=== PATIENT | male | born 1960 | race Caucasian/White ===

== ENCOUNTER 2017-10-23 12:40 | Observation (INO) | payer OTHER ==
--- NOTE | 2017-10-23 13:28 | RAD ---
INDICATION: Chest pain COMPARISON: March 22, 2016 TECHNIQUE: An AP portable view obtained at 1305 hours is submitted. FINDINGS: Bones/Soft Tissues: There are no acute bony findings. Cardiomediastinal: The cardiomediastinal silhouette is normal. Lungs: There are no infiltrates. Pleura: There are no pleural effusions. Other: None IMPRESSION: NO ACTIVE DISEASE
[2017-10-23 13:37] LABS: ABS Basophils 0.1 10^3/ul (0-0.2); ABS Eosinophils 0.1 10^3/ul (0-0.6); ABS Lymphocytes 1.7 10^3/ul (1.0-4.8); ABS Monocytes 0.6 10^3/ul (0-0.8); ABS Neutrophils 3.6 10^3/ul (1.5-7.7); ABS Nucleated RBC 0 10^3/ul; Eosinophil % 1.1 % (0-6); Hematocrit 47 % (42-52); Hemoglobin 15.8 g/dl (14.0-18.0); Lymphocyte % 28.2 % (25-47); Mean Corpuscular HGB Conc 34 g/dl (31-36); Mean Corpuscular Hemoglobin 32 pg (27-31); Mean Corpuscular Volume 93 fL (80-94); Mean Platelet Volume 8 um3 (7.4-10.4); Nucleated Red Blood Cells % 0.1; Platelet Count 286 10^3/ul (150-450); Red Blood Count 5.01 10^6/ul (4.0-5.4); Red Cell Distribution Width 13 % (10.5-15); White Blood Count 5.9 10^3/ul (3.5-10.8)
[2017-10-23 13:47] LABS: EGFR Non-African American 54.8 (>60)
[2017-10-23] MEDS ORDERED: Acetaminophen TAB* 325 MG PO PRN (17:10)
[2017-10-23] MEDS ORDERED: Ondansetron INJ* 2 MG/ML VIAL IV PRN (17:10)
[2017-10-23] MEDS: Heparin VIAL(*) 5000 UNITS/ML VIAL (FIVE THOUSAND) SUBCUT SCH (21:14)
--- NOTE | 2017-10-23 21:48 | ED ---
Imani Lux Gabriel, scribed for Philippe Mcmanus MD on 10/23/17 at 1338 . HPI Chest Pain - HPI Summary HPI Summary: This patient is a 57 year old M presenting to [facility] accompanied by his with a chief complaint of intermittent CP that began 10 days ago but was worse last night. The patient rates the pain 3/10 in severity and describes it as a weight on his chest. Symptoms aggravated by exertion. Patient reports belching and dizziness. Patient denies diaphoresis and nausea. Hx of HLD but he doesnt take medication for it. - History of Current Complaint Chief Complaint: EDChestPainROMI Time Seen by Provider: 10/23/17 13:18 Hx Obtained From: Patient Onset/Duration: Started Days Ago - 10, Still Present Timing: Intermittent, Lasting Days Initial Severity: Moderate Current Severity: Mild Pain Intensity: 3 Pain Scale Used: 0-10 Numeric Chest Pain Location: Diffuse Chest Pain Radiates: No Aggravating Factor(s): Exertion Associated Signs and Symptoms: Positive: Negative - diaphoresis and nausea, Other: - belching and dizziness - Allergy/Home Medications Allergies/Adverse Reactions: Allergies Allergy/AdvReac Type Severity Reaction Status Date / Time No Known Allergies Allergy Verified 03/22/16 19:25 Home Medications: Home Medications Aspirin TAB* [Aspirin 325 MG TAB*] 650 mg PO Q6H PRN 10/23/17 [History Confirmed 10/23/17] PMH/Surg Hx/FS Hx/Imm Hx Endocrine/Hematology History: Denies: Hx Diabetes Cardiovascular History: Reports: Other Cardiovascular Problems/Disorders - CARDIAC CATHETERIZATION 1995 HLD Denies: Hx Hypertension Sensory History: Denies: Hx Eye Injury, Hx Eye Prosthesis, Hx Glaucoma - Surgical History Surgery Procedure, Year, and Place: APPY 1978 Infectious Disease History: No Infectious Disease History: Denies: History Other Infectious Disease, Traveled Outside the [place] in Last 30 Days - Family History Known Family History: Positive: Cardiac Disease - BLOCKED ARTERIES - BOTH PARENTS. F - [place] - 60s. M - NO PA., Hypertension, Other - CANCER Negative: Diabetes - Social History Alcohol Use: None Substance Use Type: Reports: None Smoking Status (MU): Never Smoked Tobacco Review of Systems Negative: Skin Diaphoresis Positive: Chest Pain Negative: Nausea Neurological: Other - dizziness All Other Systems Reviewed And Are Negative: Yes Physical Exam - Summary Physical Exam Summary: Appearance: The patient is well-nourished in no acute distress and in no acute pain. Skin: The skin is warm and dry and skin color reflects adequate perfusion. HEENT: The head is normocephalic and atraumatic. The pupils are equal and reactive. The conjunctivae are clear and without drainage. Nares are patent and without drainage. Mouth reveals moist mucous membranes and the throat is without erythema and exudate. The external ears are intact. The ear canals are patent and without drainage. The tympanic membranes are intact. Neck: the neck is supple with full range of motion and non-tender. There are no carotid bruits. There is no neck vein distension. Respiratory: Chest is non-tender. Lungs are clear to auscultation and breath sounds are symmetrical and equal. Cardiovascular: Heart is regular rate and rhythm. There is no murmur or rub auscultated. There is no peripheral edema and pulses are symmetrical and equal. Abdomen: The abdomen is soft and non-tender. There are normal bowel sounds heard in all four quadrants and there is no organomegaly palpated. Musculoskeletal: There is no back tenderness noted. Extremities are non-tender with full range of motion. There is good capillary refill. There is no peripheral edema or calf tenderness elicited. Neurological: Patient is alert and oriented to person, place and time. The patient has symmetrical motor strength in all four extremities. Cranial nerves are grossly intact. Deep tendon reflexes are symmetrical and equal in all four extremities. Psychiatric: The patient has an appropriate affect and does not exhibit any anxiety or depression. Triage Information Reviewed: Yes Vital Signs On Initial Exam: Initial Vitals Temp Pulse Resp BP Pulse Ox 98.1 F 65 16 155/82 99 10/23/17 12:54 10/23/17 12:54 10/23/17 12:54 10/23/17 12:54 10/23/17 12:54 Vital Signs Reviewed: Yes Diagnostics - Vital Signs Vital Signs Temp Pulse Resp BP Pulse Ox 10/23/17 12:54 98.1 F 65 16 155/82 99 - Laboratory Lab Results: Lab Results 10/23/17 10/23/17 10/23/17 Range/Units 13:15 13:15 13:15 WBC 5.9 (3.5-10.8) 10^3/ul RBC 5.01 (4.0-5.4) 10^6/ul Hgb 15.8 (14.0-18.0) g/dl Hct 47 (42-52) % MCV 93 (80-94) fL MCH 32 H (27-31) pg MCHC 34 (31-36) g/dl RDW 13 (10.5-15) % Plt Count 286 (150-450) 10^3/ul MPV 8 (7.4-10.4) um3 Neut % (Auto) 59.8 (38-83) % Lymph % (Auto) 28.2 (25-47) % [place] % (Auto) 9.9 H (0-7) % Eos % (Auto) 1.1 (0-6) % Baso % (Auto) 1.0 (0-2) % Absolute Neuts (auto) 3.6 (1.5-7.7) 10^3/ul Absolute Lymphs (auto) 1.7 (1.0-4.8) 10^3/ul Absolute Monos (auto) 0.6 (0-0.8) 10^3/ul Absolute Eos (auto) 0.1 (0-0.6) 10^3/ul Absolute Basos (auto) 0.1 (0-0.2) 10^3/ul Absolute Nucleated RBC 0 10^3/ul Nucleated RBC % 0.1 Sodium 135 (133-145) mmol/L Potassium 3.7 (3.5-5.0) mmol/L Chloride 101 (101-111) mmol/L Carbon Dioxide 29 (22-32) mmol/L Anion Gap 5 (2-11) mmol/L BUN 15 (6-24) mg/dL Creatinine 1.34 H (0.67-1.17) mg/dL Est GFR ( Amer) 70.4 (>60) Est GFR (Non-Af Amer) 54.8 (>60) BUN/Creatinine Ratio 11.2 (8-20) Glucose 91 (70-100) mg/dL Lactic Acid 0.9 (0.5-2.0) mmol/L Calcium 9.5 (8.6-10.3) mg/dL Total Bilirubin 0.50 (0.2-1.0) mg/dL AST 15 (13-39) U/L ALT 21 (7-52) U/L Alkaline Phosphatase 50 (34-104) U/L CK-MB (CK-2) 2.1 (0.6-6.3) ng/mL Troponin I 0.00 (<0.04) ng/mL Total Protein 7.2 (6.4-8.9) g/dL Albumin 4.0 (3.2-5.2) g/dL Globulin 3.2 (2-4) g/dL Albumin/Globulin Ratio 1.3 (1-3) 10/23/17 Range/Units 16:04 WBC (3.5-10.8) 10^3/ul RBC (4.0-5.4) 10^6/ul Hgb (14.0-18.0) g/dl Hct (42-52) % MCV (80-94) fL MCH (27-31) pg MCHC (31-36) g/dl RDW (10.5-15) % Plt Count (150-450) 10^3/ul MPV (7.4-10.4) um3 Neut % (Auto) (38-83) % Lymph % (Auto) (25-47) % [place] % (Auto) (0-7) % Eos % (Auto) (0-6) % Baso % (Auto) (0-2) % Absolute Neuts (auto) (1.5-7.7) 10^3/ul Absolute Lymphs (auto) (1.0-4.8) 10^3/ul Absolute Monos (auto) (0-0.8) 10^3/ul Absolute Eos (auto) (0-0.6) 10^3/ul Absolute Basos (auto) (0-0.2) 10^3/ul Absolute Nucleated RBC 10^3/ul Nucleated RBC % Sodium (133-145) mmol/L Potassium (3.5-5.0) mmol/L Chloride (101-111) mmol/L Carbon Dioxide (22-32) mmol/L Anion Gap (2-11) mmol/L BUN (6-24) mg/dL Creatinine (0.67-1.17) mg/dL Est GFR ( Amer) (>60) Est GFR (Non-Af Amer) (>60) BUN/Creatinine Ratio (8-20) Glucose (70-100) mg/dL Lactic Acid (0.5-2.0) mmol/L Calcium (8.6-10.3) mg/dL Total Bilirubin (0.2-1.0) mg/dL AST (13-39) U/L ALT (7-52) U/L Alkaline Phosphatase (34-104) U/L CK-MB (CK-2) (0.6-6.3) ng/mL Troponin I 0.00 (<0.04) ng/mL Total Protein (6.4-8.9) g/dL Albumin (3.2-5.2) g/dL Globulin (2-4) g/dL Albumin/Globulin Ratio (1-3) Result Diagrams: 10/23/17 13:15 10/23/17 13:15 Lab Statement: Any lab studies that have been ordered have been reviewed, and results considered in the medical decision making process. - Radiology CXR Radiology Interpretation Completed By: Radiologist - No active disease ED physician has reviewed this radiology report. - EKG 1241 Cardiac Rate: NL EKG Rhythm: Sinus Rhythm - 72 BPM EKG Comparison: No Significant Change - unchanged from 03/22/16 Chest Pain Course/Dx - Course Course Of Treatment: Mr. Randall has been having episode of exertional chest pressure that have been getting worse. He has a family history and although his initial ecg and labs were WNL, I have asked the hospitalist to evaluate him. - Diagnoses Provider Diagnoses: Chest pain - Provider Notifications Discussed Care Of Patient With: Johan Giordano Time Discussed With Above Provider: 16:39 Instructed by Provider To: Admit As Inpatient Discharge - Discharge Plan Condition: Fair Disposition: ADMITTED TO [facility] documentation as recorded by the Imani desir Gabriel accurately reflects the service I personally performed and the decisions made by me, Philippe Mcmanus MD.
--- NOTE | 2017-10-23 22:13 | HP ---
CC: Dr. Key * HISTORY AND PHYSICAL: DATE OF ADMISSION: 10/23/17 PRIMARY CARE PROVIDER: Dr. Key. ATTENDING PHYSICIAN WHILE IN THE HOSPITAL: Dr. Johan Giordano * (report dictated by Sanjiv Benoit NP) CHIEF COMPLAINT: Chest tightness. HISTORY OF PRESENT ILLNESS: Mr. Randall is a 57-year-old male patient. He has history of hyperlipidemia, question of history of DINESH, says he has never been formally diagnosed but he does state that he snores at night. He comes into the ED today stating that for the last couple of weeks he has had intermittent chest discomfort at times with exertion described as a pressure heaviness, it can last for seconds upwards to minute. He noticed today when he was walking to his mail box, he got particularly short of breath. He felt like he was having little bit of chest pressure. He says that it got better when he stopped. He was concerned because he was having these symptoms recurrently throughout the last couple of weeks. He says that he has not had any fevers or chills, no coughing. At times, when he does get this chest discomfort, he does state that it feels like he is short of breath. He says that it can happen with non-exertion and it can happen with exertion. He came into the emergency department today because it just was not getting any better. He says he took aspirin last night, he felt well. He also had an episode last night where he felt like he was going to faint, but was not in the setting of chest discomfort , at that point, he says that he felt lightheaded, but there was no chest pain and no shortness of breath. He came into the ED today because of the chest discomfort and his story, we were asked to evaluate for admission. PAST MEDICAL HISTORY: Significant for: 1. Hyperlipidemia. Again, he has been noncompliant with his statins due to his arthralgias. He recently was prescribed Pravachol, he is unsure of the dose. 2. Question of DINESH, . PAST SURGICAL HISTORY: He has had an appendectomy. MEDICATIONS: Home meds include: 1. Pravachol again 1 tablet daily. 2. He thinks aspirin 650 mg every 6 hours as needed. ALLERGIES TO MEDICATIONS: Include no known drug allergies. FAMILY HISTORY: Both his parents had cancer. His father did have several heart attacks and CAD. SOCIAL HISTORY: He does not smoke. He does not drink. Surrogate decision maker is his . REVIEW OF SYSTEMS: There has been no documented fever. He denies having any significant weight change. There is no double vision. He denies having any ear discharge. There is no rhinorrhea. No sore throat, no thyroid enlargement. He denies having any chest pain. There is no orthopnea, there is no nocturnal dyspnea. Denies having any fevers or cough or chills. There is chest pressure per my HPI, which he says at times is exertional. He denies any loss of consciousness. Review of 14 systems completed, all others negative. PHYSICAL EXAMINATION GENERAL: At this time, Mr. Randall is a 57-year-old male patient. He appears to be well-nourished, well-developed. He does not appear to be in any acute distress. He is awake and alert. VITAL SIGNS: Blood pressure 131/76, pulse 61, respirations 14, O2 sat 93%, and temperature 98.1. HEENT: Atraumatic and normocephalic. Eyes: EOMI are intact. Sclerae anicteric and not pale. NECK: Supple. Throat oral mucosa appears to be moist. No oropharyngeal erythema. LUNGS: Clear to auscultation. No wheezes, rales, or rhonchi. HEART: Sounds S1 and S2. Regular rate and rhythm. No murmurs, rubs, or gallops. ABDOMEN: Soft, it was flat and nontender. Bowel sounds present. EXTREMITIES: Pulses were 2+ throughout. Moving all 4 extremities with 5/5 strength. NEUROLOGIC: The patient is awake, alert, and oriented x3. Tongue midline. Sign Painter Helper were equal. There were no gross focal deficits. SKIN: Intact. DIAGNOSTIC STUDIES/LAB DATA: Revealed a WBC of 5.9, RBC of 5.01, hemoglobin of 15.8, hematocrit of 47, and platelet count of 286. Sodium was 135, potassium 3.7, chloride of 101, bicarb 28, BUN 15, creatinine 1.34, glucose 91, lactate 0.9, calcium 8.5. Total bili 0.5, AST 15, ALT 21, alk phos 50. CK-MB was 2.1. Troponin was 0, repeat troponin was 0. Albumin of 4. He had an EKG obtained today, which when I reviewed I see he does have flattened T waves in V4, V5, and V6. He has that in his previous EKGs. He does have some flattened T waves in leads I, II, aVL, which when I looked back to that his older EKGs, he has had that previously. No significant changes were noted. On today's EKG, he has a heart rate of 72. No ST elevation. There was a chest x-ray obtained today, which revealed no active cardiopulmonary disease. Old medical records were reviewed. ASSESSMENT AND PLAN: Mr. Randall is a 57-year-old patient coming into the ED today with complaints of chest pain, at times exertional. We were asked to evaluate for admission. He will be admitted under observation status for: 1. Chest pain. Again, etiology at this point, I am concerned that it could be cardiac related. I will get another troponin. I will put the patient on aspirin, continue with statin. We are checking a lipid panel and A1c in the morning. We will place him on telemetry. We will get an EKG in the morning. We will cycle his troponin. I am checking a D-dimer as well if that is elevated , I will pursue a CTA. At this point, I am concerned it could be cardiac and will do a stress test in the morning, will continue to follow. 2. Hyperlipidemia. I am getting a lipid panel in the morning. We will start him on Pravachol. 3. Questionable obstructive sleep apnea. Recommend following with primary. 4. DVT prophylaxis. Place on heparin subcu. 5. Code status. He is a full code. 6. Fluids, electrolytes, and nutrition. He can have a heart-healthy diet. N.p.o. after midnight. TIME SPENT: On this admission 60 minutes, greater than half that time was spent [id number] with the patient obtaining my history and physical, other half time spent going over the plan of care with the patient and implementing the plan of care. I did discuss the plan of care with my attending, Dr. Giordano; he is in agreement. SANJIV BENOIT, RAULITO [id number]/[facility] #: [id number] FAVIAN
[2017-10-24] MEDS: Heparin VIAL(*) 5000 UNITS/ML VIAL (FIVE THOUSAND) SUBCUT SCH ×2 (05:05→13:01)
[2017-10-24 06:25] LABS: ABS Basophils 0 10^3/ul (0-0.2); ABS Eosinophils 0.1 10^3/ul (0-0.6); ABS Lymphocytes 1.9 10^3/ul (1.0-4.8); ABS Monocytes 0.7 10^3/ul (0-0.8); ABS Nucleated RBC 0 10^3/ul; Eosinophil % 1.6 % (0-6); Hematocrit 45 % (42-52); Hemoglobin 15.3 g/dl (14.0-18.0); Lymphocyte % 28.6 % (25-47); Mean Corpuscular HGB Conc 34 g/dl (31-36); Mean Corpuscular Hemoglobin 32 pg (27-31); Mean Corpuscular Volume 93 fL (80-94); Mean Platelet Volume 8 um3 (7.4-10.4); Nucleated Red Blood Cells % 0.2; Platelet Count 270 10^3/ul (150-450); Red Blood Count 4.83 10^6/ul (4.0-5.4); Red Cell Distribution Width 14 % (10.5-15); White Blood Count 6.8 10^3/ul (3.5-10.8)
[2017-10-24 06:58] LABS: EGFR Non-African American 51.6 (>60)
[2017-10-24] MEDS ORDERED: Aspirin Low Dose CHEW TAB* 81 MG PO SCH (09:00)
--- NOTE | 2017-10-24 12:58 | RAD ---
Edited for charges. Indication: Chest pain. Myocardial perfusion scan was performed utilizing 1 day protocol. 10.6 mCi technetium 99 and tetrofosmin was injected for the rest portion of the study. Treadmill stress study was performed and the maximum heart rate achieved was 100% of the maximum predicted value. 25.6 mCi of technetium 99m tetrofosmin was injected for the stress portion of the study. There is homogeneous distribution of the radiotracer throughout the left ventricle. There is a small to moderate sized inferior wall photopenia on the stress images which appears to reverse on the rest images especially with attenuation correction. The ejection fraction at stress is 83%. Evaluation of wall motion demonstrates no focal wall motion abnormality. IMPRESSION: Reversible change in the inferior wall of [id number] size. Normal ejection fraction. ASSESSMENT: Intermediate risk Based on imaging criteria from ACC/AHA 2002 Guideline Update for the Management of Patients With Chronic Stable Angina Table 23. Noninvasive Risk Stratification. Reference. HIGH-RISK (GREATER THAN 3% ANNUAL MORTALITY RATE) - Severe resting left ventricular dysfunction (LVEF < 35%) - Severe exercise left ventricular dysfunction (exercise LVEF < 35%) - Stress-induced large perfusion defect (particularly if anterior) - Stress-induced multiple perfusion defects of moderate size - Large, fixed perfusion defect with LV dilation or increased lung uptake ( thallium-201) - Stress-induced moderate perfusion defect with LV dilation or increased lung uptake (thallium-201) INTERMEDIATE-RISK (1%-3% ANNUAL MORTALITY RATE) - Mild/moderate resting left ventricular dysfunction (LVEF = 35% to 49%) - Stress-induced moderate perfusion defect without LV dilation or increased lung intake (thallium-201) LOW-RISK (LESS THAN 1% ANNUAL MORTALITY RATE) - Normal or small myocardial perfusion defect at rest or with stress MTDD
[2017-10-24 15:59] VITALS: BP 131/54
[2017-10-24] MEDS ORDERED: Atorvastatin* 10 MG TAB PO SCH (17:00)
--- NOTE | 2017-10-24 21:37 | CONS ---
CC: Lucio Key MD * CARDIOLOGY CONSULTATION NOTE: DATE OF CONSULT: 10/24/17 INDICATION FOR CONSULTATION: Chest discomfort. HISTORY OF PRESENT ILLNESS: The patient is a 57-year-old gentleman with history of hypertension, obstructive sleep apnea, hyperlipidemia, who came to the emergency room because of intermittent chest discomfort. The patient states that every once in a while he will get this feeling in his chest. It is not a sharp pain. It is in the center of his chest. It does not radiate anywhere. It will last anywhere from 5 minutes to 2 hours. It is not associated with exertion and is not associated with meals. He said he had this discomfort early in the morning yesterday and after talking with some friends in the afternoon, decided to come to the emergency room. On arrival to the emergency room, he was symptom free. Patient's initial EKG showed normal sinus rhythm with nonspecific T-wave abnormalities. Patient was admitted to the hospital. He ruled out for myocardial infarction. His EKG this morning was exactly the same. Patient underwent an exercise nuclear stress test. He exercised for 7 minutes. He had no chest pain. No EKG changes. Patient's nuclear images were personally reviewed by myself. It demonstrated a small reversible defect in the inferior wall potentially consistent with ischemia. When compared to the attenuation corrected images the overall size of the ischemic defect is smaller , but not completely resolved. His raw images do show some degree of diaphragmatic attenuation. He has normal LV function. PAST MEDICAL HISTORY: Significant for hyperlipidemia, obstructive sleep apnea. PAST SURGICAL HISTORY: He has had an appendectomy in the past. OUTPATIENT MEDICATION: Pravachol, which he has not been taking. ALLERGIES: No known drug allergies. FAMILY HISTORY: Father did have a history of coronary artery disease and heart attacks. He does have a family history of cancer. PHYSICAL EXAM: Height is 5 feet 4 inches, weight 220 pounds. Temperature 97.7 , heart rate 65, blood pressure 131/54, respiratory rate is 18, oxygen saturation 99% on room air. Sclerae anicteric. Oropharynx is pink. No erythema. Carotids are 2+ without bruits. JVD is normal. Thyroid is normal. Cardiac Exam: S1, S2 without any murmurs, rubs, or gallops. Lungs are clear to auscultation bilaterally. There is no dullness to percussion. Abdomen is soft, nontender, nondistended with normoactive bowel sounds. Extremities show no edema. He has 2+ pulses throughout. The patient is awake, alert, and oriented. He moves all 4 extremities equally. DIAGNOSTIC STUDIES/LAB DATA: CBC within normal limits. Chemistries within normal limits. Troponin levels are negative x3. Total cholesterol 332, LDL cholesterol 267, HDL cholesterol 32, triglycerides 161. IMPRESSION: This is a 57-year-old gentleman who was admitted to the hospital with atypical chest pain. He underwent an exercise nuclear stress test. His exercise portion was unremarkable. His nuclear portion does show a potential ischemic area to his inferior wall. He has normal LV function. For now, my recommendation is to treat the patient medically for potential coronary artery disease. Patient will be started on aspirin 81 mg a day. He will be encouraged to take his Pravachol on a daily basis. I will start the patient on Norvasc for both his blood pressure and antianginal. Patient has had beta-blockers in the past and has not liked how he felt on beta - blockers. Patient does have significantly elevated cholesterol levels. I am not convinced that he is going to reach goal levels of cholesterol based only on statin medication. At some point, we may consider newer medications such as Repatha for control of his cholesterol. I will see the patient in followup in 2 to 3 weeks. Patient is to call my office if he has any further chest discomfort. I have encouraged the patient to start a mild exercise program and start a low cholesterol diet and have a goal weight loss of 20 pounds in the next 6 months. [id number]/[facility] #: [id number] FAVIAN
--- NOTE | 2017-10-25 17:14 | DS ---
CC: Dr. Crowley; Dr. Key DISCHARGE SUMMARY: DATE OF ADMISSION: 10/23/17 DATE OF DISCHARGE: 10/24/17 PRIMARY CARE PROVIDER: Dr. Key. DISCHARGE DIAGNOSES: Chest pain with intermediate probability cardiac stress test documented on 09/29 03/14, suspect angina related chest pain. SECONDARY DIAGNOSES: 1. History of dyslipidemia. 2. Obesity with BMI of 38. 3. History of gastroesophageal reflux disease, symptoms treated as needed. CONSULTATIONS DURING THE HOSPITAL STAY: Included Dr. Crowley from Cardiology. LABORATORY DATA AND STUDIES PERFORMED: Included: On 10/24/17, white blood cell count of 6.8, hemoglobin 15.3, hematocrit 45, and platelets of 270. D-dimer was below 200. Sodium was 137, potassium 4.2, chloride 104, carbon dioxide 26, BUN 15, creatinine 1.41. The patient 's fasting lipide profile showed triglycerides of 161, cholesterol total of 332, LDL of 267, and HDL of 32. Hemoglobin A1c was 5.7. Nuclear portion of patient's exercise stress test showed, impression: "Reversible change in the infe rior wall of small to moderate size. Normal ejection fraction." It was assessed as intermediate risk . HOSPITALIZATION COURSE: Familia Randall is a 57-year-old male who has history of dyslipidemia that villasenor d not been treated since the patient in the past had myalgias due to Lipitor. He also was treated wi th beta-blockers in the past, which he did not tolerate and presented to the hospital with nonexertio nal chest pain. For further details of the patient's presentation, please see history and physical d ictated at admission. Shortly, the patient did not have any recurrence of his chest pain during his hospital stay. He was noted to have marked dyslipidemia and he stated he was prescribed Pravachol by his primary care provider that he filled the prescription, but he has not started taking it yet. Ex ercise portion of his stress test was unremarkable, but his nuclear views showed reversible ischemia, a small area in the inferior wall. The patient was seen by Dr. Crowley who recommended modifications of his cardiac risk factors and recommended starting patient on Norvasc as well as continuation of as pirin and continuation of Pravachol that the patient has not started yet. MEDICATIONS AT DISCHARGE: Include: 1. Amlodipine 2.5 mg daily. 2. Aspirin 325 mg daily. 3. Pravachol 40 mg daily. The patient is recommended to follow up with his primary care provider Dr. Key in 4 to [address] Crowley in 1 month. The patient is recommended to perform nonstrenuous exercise, but moderate physical activity is accept ed. We had a long discussion about importance of diet and exercise, which patient is going to try to adhe re more from now on. The patient also was informed that his hemoglobin A1c is 5.7, which is mildly e levated and the importance of low cholesterol diet and to avoid complex carbohydrates. Physical exam at discharge is unchanged from admission. [id number]/[facility] #: [id number]
== END 2017-10-24 17:40 | disposition home or self-care (01) ==
LOC: ED 12:40 → MEDTELE 17:50
PROVIDERS: ADMIT Internal Medicine; ATTEND Internal Medicine
DX: R07.9 Chest pain, unspecified (principal); E78.5 Hyperlipidemia, unspecified; R94.31 Abnormal electrocardiogram [ECG] [EKG]; G47.33 Obstructive sleep apnea (adult) (pediatric); Z79.82 Long term (current) use of aspirin; I45.81 Long QT syndrome; Z82.49 Family history of ischemic heart disease and other diseases of the circulatory system; Z79.899 Other long term (current) drug therapy
CPT/HCPCS: 36415; 71045; 78452; 80048; 80053; 80061; 82553; 83036; 83605; 84484; 85025; 85379; 93005; 93017; 99284; A9270-GY; A9502; G0378

== ENCOUNTER 2018-04-10 16:30 | Inpatient (IN) | payer OTHER ==
[2018-04-10 17:45] LABS: ABS Basophils 0.1 10^3/ul (0-0.2); ABS Eosinophils 0 10^3/ul (0-0.6); ABS Lymphocytes 1.2 10^3/ul (1.0-4.8); ABS Monocytes 0.7 10^3/ul (0-0.8); ABS Neutrophils 9.3 10^3/ul (1.5-7.7); ABS Nucleated RBC 0 10^3/ul; Eosinophil % 0.4 % (0-6); Hematocrit 46 % (42-52); Hemoglobin 15.5 g/dl (14.0-18.0); Lymphocyte % 10.5 % (25-47); Mean Corpuscular HGB Conc 34 g/dl (31-36); Mean Corpuscular Hemoglobin 31 pg (27-31); Mean Corpuscular Volume 93 fL (80-94); Mean Platelet Volume 7.8 um3 (7.4-10.4); Nucleated Red Blood Cells % 0.1; Platelet Count 273 10^3/ul (150-450); Red Blood Count 4.99 10^6/ul (4.00-5.40); Red Cell Distribution Width 13 % (10.5-15); White Blood Count 11.4 10^3/ul (3.5-10.8)
--- NOTE | 2018-04-10 17:53 | RAD ---
INDICATION: Headache COMPARISON: None TECHNIQUE: Noncontrast axial source images were acquired from the skull base to the vertex. FINDINGS: Ventricles/sulci: The ventricles and cisterns are normal in size and configuration for age. Brain parenchyma: There is no focal parenchymal finding, evidence of intracranial mass, or intracranial mass effect. Intracranial hemorrhage:None. Extra-axial spaces: There are no abnormal extra axial fluid collections or evidence of extra-axial mass. Calvarium: There is no calvarial fracture or other calvarial abnormality. Scalp: There is no evidence of scalp or extracalvarial soft tissue abnormality. Paranasal sinuses/mastoid: The paranasal sinuses and mastoid air cells are clear. Other: None. IMPRESSION: NEGATIVE EXAMINATION
[2018-04-10] MEDS ORDERED: Diazepam TAB(*) 5 MG PO ONE (17:55)
[2018-04-10 18:04] LABS: EGFR Non-African American 62.6 (>60)
[2018-04-10 18:40] LABS: INR 0.96 (0.77-1.02)
--- NOTE | 2018-04-10 18:59 | RAD ---
INDICATION: Arrhythmia COMPARISON: None TECHNIQUE: AP seated and lateral views were obtained. FINDINGS: Bones/Soft Tissues: There are no acute bony findings. Cardiomediastinal: The cardiomediastinal silhouette is normal. Lungs: There are no infiltrates. Pleura: There are no pleural effusions. Other: None IMPRESSION: NO ACTIVE DISEASE.
--- NOTE | 2018-04-10 19:08 | RAD ---
INDICATION: Headaches. Dizziness. COMPARISON: CT brain April 10, 2018 TECHNIQUE: sagittal T1 FLAIR, axial diffusion, axial T1 FLAIR, axial T2, axial T2 FLAIR, and SWI images were acquired. FINDINGS: Craniocervical junction: The craniocervical junction appears normal. Ventricles/sulci: The ventricles and cisterns are normal in size and configuration for age. Brain parenchyma: There The diffusion weighted images show hyperintensity in the distribution of the right posterior inferior cerebral artery consistent with an acute infarct. There are no other focal parenchymal abnormalities. There is no evidence of intracranial mass or mass effect. Intracranial hemorrhage: There is no intracranial hemorrhage. Extra-axial spaces: There are no extra-axial fluid collections or masses. Orbits: There are no MR abnormalities of the orbital structures. Paranasal sinuses/mastoid: The paranasal sinuses are clear. The mastoid air cells are well aerated.. Vascular: No abnormalities are seen. Other: None IMPRESSION: ACUTE, NONHEMORRHAGIC RIGHT CEREBELLAR INFARCT. FINDINGS CALLED TO EMERGENCY DEPARTMENT AT 1855 HOURS.
[2018-04-10] MEDS ORDERED: Alteplase* 9 MG in PREMIX* 0 ML IV ONE (19:24)
[2018-04-10] MEDS ORDERED: Alteplase* 50 MG VIAL IV ONE (19:26)
[2018-04-10] MEDS ORDERED: Alteplase* 100 MG VIAL ONE (19:34)
--- NOTE | 2018-04-10 19:53 | ED ---
Dizziness - HPI Summary HPI Summary: Patient complains of sudden onset dizziness, mild YOUNGBLOOD, lightheadedness, nausea vomiting with movement, sweats, difficulty keeping balance around 3:20 PM today. Dizziness described as room spinning. Pt alert and oriented, states he has been unable to walk due to dizziness. Symptoms are worse with movement of head or change in body position, sx improve when patient is lying down, still with eyes closed.. Denies prior history of same. Denies vision changes, facial droop, speech changes, AMS, unilateral weakness, fever, cough, sore throat, CP, SOB,, abdominal pain, change in urine, change in BM. Medical history is HTN, HDL. Nml stress test 09/2017. Non smoker. No anticoag. - History Of Current Complaint Chief Complaint: EDDizziness Stated Complaint: DIZZY/WEAKNESS/VOMITING Time Seen by Provider: 04/10/18 16:38 Hx Obtained From: Patient, Family/Dental Amalgam Processor Last Known Well Date: 3:20 Onset/Duration: Still Present Timing: Constant Severity Initially: Moderate Severity Currently: Moderate Character: Room Spinning, Lightheaded, Weak, Dizzy Aggravating Factor(s): Position Change, Change In Head Position Alleviating Factor(s): Lying Down, Closing Eyes Associated Signs And Symptoms: Positive: Nausea, Vomiting, Inability to Walk - Risk Factors Cardiac Risk Factors: Hypertension CVA Risk Factor: Hypertension, Hyperlipidemia - Allergies/Home Medications Allergies/Adverse Reactions: Allergies Allergy/AdvReac Type Severity Reaction Status Date / Time atorvastatin Allergy Unknown Verified 04/11/18 07:00 Reaction Details PMH/Surg Hx/FS Hx/Imm Hx Endocrine/Hematology History: Denies: Hx Anticoagulant Therapy, Hx Diabetes Cardiovascular History: Reports: Hx Angina, Other Cardiovascular Problems/ Disorders - CARDIAC CATHETERIZATION 1995 HLD Denies: Hx Hypertension, Hx Pacemaker/ICD GI History: Reports: Hx Gastroesophageal Reflux Disease Sensory History: Reports: Hx Contacts or Glasses Denies: Hx Eye Injury, Hx Eye Prosthesis, Hx Glaucoma, Hx Hearing Aid Comment Only: Other Sensory Impairments - Reading glasses. Opthamlomology History: Reports: Hx Contacts or Glasses Denies: Hx Eye Injury, Hx Eye Prosthesis, Hx Glaucoma Comment Only: Other Sensory Impairments - Reading glasses. Psychiatric History: Denies: Hx Panic Disorder - Surgical History Surgery Procedure, Year, and Place: APPY 1978. heart cath Infectious Disease History: No Infectious Disease History: Denies: History Other Infectious Disease, Traveled Outside the [place] in Last 30 Days - Family History Known Family History: Positive: Cardiac Disease - BLOCKED ARTERIES - BOTH PARENTS. F - [place] - 60s. M - NO [place]., Hypertension, Other - CANCER Negative: Diabetes - Social History Alcohol Use: None Substance Use Type: Reports: None Smoking Status (MU): Never Smoked Tobacco Review of Systems Constitutional: Negative Eyes: Negative Cardiovascular: Negative Respiratory: Negative Positive: Vomiting, Nausea Genitourinary: Negative Musculoskeletal: Negative Skin: Negative Neurological: Other - dizziness Positive: Headache Psychological: Normal All Other Systems Reviewed And Are Negative: Yes Physical Exam - Summary Physical Exam Summary: Neuro exam normal. Increase in symptoms with change in body position or head movement. Triage Information Reviewed: Yes Vital Signs On Initial Exam: Initial Vitals Temp Pulse Resp BP Pulse Ox 97.9 F 81 16 154/55 95 04/10/18 16:31 04/10/18 16:31 04/10/18 16:31 04/10/18 16:31 04/10/18 16:31 Vital Signs Reviewed: Yes Appearance: Positive: Well-Appearing Skin: Positive: Warm Head/Face: Positive: Normal Head/Face Inspection Eyes: Positive: Normal Neck: Positive: Supple Respiratory/Lung Sounds: Positive: Clear to Auscultation Cardiovascular: Positive: Normal Abdomen Description: Positive: Nontender Musculoskeletal: Positive: Normal Neurological: Positive: Normal Psychiatric: Positive: Normal AVPU Assessment: Alert - Killian Coma Scale Best Eye Response: 4 - Spontaneous Best Motor Response: 6 - Obeys Commands Best Verbal Response: 5 - Oriented Coma Scale Total: 15 Diagnostics - Vital Signs Vital Signs Temp Pulse Resp BP Pulse Ox 04/10/18 16:31 97.9 F 81 16 154/55 95 - Laboratory Lab Results: Lab Results 04/10/18 04/10/18 04/10/18 Range/Units 17:32 17:32 17:32 WBC 11.4 H (3.5-10.8) 10^3/ul RBC 4.99 (4.00-5.40) 10^6/ul Hgb 15.5 (14.0-18.0) g/dl Hct 46 (42-52) % MCV 93 (80-94) fL MCH 31 (27-31) pg MCHC 34 (31-36) g/dl RDW 13 (10.5-15) % Plt Count 273 (150-450) 10^3/ul MPV 7.8 (7.4-10.4) um3 Neut % (Auto) 81.8 (38-83) % Lymph % (Auto) 10.5 L (25-47) % Hettinger % (Auto) 6.2 (0-7) % Eos % (Auto) 0.4 (0-6) % Baso % (Auto) 1.1 (0-2) % Absolute Neuts (auto) 9.3 H (1.5-7.7) 10^3/ul Absolute Lymphs (auto) 1.2 (1.0-4.8) 10^3/ul Absolute Monos (auto) 0.7 (0-0.8) 10^3/ul Absolute Eos (auto) 0 (0-0.6) 10^3/ul Absolute Basos (auto) 0.1 (0-0.2) 10^3/ul Absolute Nucleated RBC 0 10^3/ul Nucleated RBC % 0.1 INR (Anticoag Therapy) 0.96 (0.77-1.02) Sodium 137 (135-145) mmol/L Potassium 4.2 (3.5-5.0) mmol/L Chloride 103 (101-111) mmol/L Carbon Dioxide 28 (22-32) mmol/L Anion Gap 6 (2-11) mmol/L BUN 13 (6-24) mg/dL Creatinine 1.19 H (0.67-1.17) mg/dL Est GFR ( Amer) 75.7 (>60) Est GFR (Non-Af Amer) 62.6 (>60) BUN/Creatinine Ratio 10.9 (8-20) Glucose 103 H (70-100) mg/dL Calcium 8.9 (8.6-10.3) mg/dL Total Bilirubin 0.40 (0.2-1.0) mg/dL AST 17 (13-39) U/L ALT 22 (7-52) U/L Alkaline Phosphatase 47 (34-104) U/L Troponin I 0.00 (<0.04) ng/mL C-Reactive Protein 1.74 (<8.01) mg/L B-Natriuretic Peptide ( - 100) pg/mL Total Protein 6.9 (6.4-8.9) g/dL Albumin 4.0 (3.2-5.2) g/dL Globulin 2.9 (2-4) g/dL Albumin/Globulin Ratio 1.4 (1-3) //18 Range/Units 17:32 WBC (3.5-10.8) 10^3/ul RBC (4.00-5.40) 10^6/ul Hgb (14.0-18.0) g/dl Hct (42-52) % MCV (80-94) fL MCH (27-31) pg MCHC (31-36) g/dl RDW (10.5-15) % Plt Count (150-450) 10^3/ul MPV (7.4-10.4) um3 Neut % (Auto) (38-83) % Lymph % (Auto) (25-47) % Hettinger % (Auto) (0-7) % Eos % (Auto) (0-6) % Baso % (Auto) (0-2) % Absolute Neuts (auto) (1.5-7.7) 10^3/ul Absolute Lymphs (auto) (1.0-4.8) 10^3/ul Absolute Monos (auto) (0-0.8) 10^3/ul Absolute Eos (auto) (0-0.6) 10^3/ul Absolute Basos (auto) (0-0.2) 10^3/ul Absolute Nucleated RBC 10^3/ul Nucleated RBC % INR (Anticoag Therapy) (0.77-1.02) Sodium (135-145) mmol/L Potassium (3.5-5.0) mmol/L Chloride (101-111) mmol/L Carbon Dioxide (22-32) mmol/L Anion Gap (2-11) mmol/L BUN (6-24) mg/dL Creatinine (0.67-1.17) mg/dL Est GFR ( Amer) (>60) Est GFR (Non-Af Amer) (>60) BUN/Creatinine Ratio (8-20) Glucose (70-100) mg/dL Calcium (8.6-10.3) mg/dL Total Bilirubin (0.2-1.0) mg/dL AST (13-39) U/L ALT (7-52) U/L Alkaline Phosphatase (34-104) U/L Troponin I (<0.04) ng/mL C-Reactive Protein (<8.01) mg/L B-Natriuretic Peptide 21 ( - 100) pg/mL Total Protein (6.4-8.9) g/dL Albumin (3.2-5.2) g/dL Globulin (2-4) g/dL Albumin/Globulin Ratio (1-3) Result Diagrams: 04/11/18 05:04 04/11/18 05:04 Lab Statement: Any lab studies that have been ordered have been reviewed, and results considered in the medical decision making process. - Radiology cxr Xray Interpretation: No Acute Changes Radiology Interpretation Completed By: Radiologist - CT brain CT Interpretation: No Acute Changes CT Interpretation Completed By: Radiologist CTA head and neck CT Interpretation: No Acute Changes - CTA head impression stenosis are identified within into and and 3 segments of the bilateral middle cerebral arteries. Atherosclerotic changes are identified of the cavernous left internal carotid artery with less than 50% stenosis. Basilar artery: No significant stenosis. No occlusion. No aneurysm. Right vertebral artery: No occlusion or significant stenosis. Left vertebral artery: No occlusion or significant stenosis. Right posterior cerebral artery: No occlusion or significant stenosis, no aneurysm. Left posterior cerebral artery: No occlusion or significant stenosis. No aneurysm. CTA neck impression: Atherosclerotic changes are visualized of the proximal right internal carotid artery with approximately 55% stenosis. Atherosclerosis of the proximal left internal carotid artery with approximately 40% stenosis CT Interpretation Completed By: Radiologist - EKG 1 Cardiac Rate: Other Rate EKG Rhythm: Sinus Rhythm ST Segment: Non-Specific Ectopy: None EKG Interpretation: ventricular trigeminy, change from EKG in 10/24/2017 - Additional Comments Diagnostic Additional Comments: MRI brain without contrast positive for right cerebellar infarct. National Institutes Of Health - NIH Scale Level of Consciousness: Alert/Keenly Responsive Ask Patient the Month and His/Her Age: Both Correct Ask Pt to Open/Close Eyes and Crop Research Scientist/Release Non-Paretic Hand: Both Correctly Best Gaze (Only Horizontal Eye Movement): Normal Visual Field Testing: No Visual Loss Facial Paresis-Pt to Smile & Close Eyes or Grimace Symmetry: Normal/Symmetrical Motor Function - Right Arm: No Drift-Holds 10 Seconds Motor Function - Left Arm: No Drift-Holds 10 Seconds Motor Function - Right Leg: No Drift-Holds 10 Seconds Motor Function - Left Leg: No Drift-Holds 10 Seconds Limb Ataxia-Must be out of Proportion to Weakness Present: Present in Two Limbs Sensory (Use Pinprick to Test Arms/Legs/Trunk/Face): Normal Best Language (Describe Picture, Name Items): No Aphasia Dysarthria (Read Several Words): Normal Extinction and Inattention: No Abnormality - 17:00 Total Score: 2 Dizzy Course/Dx - Course Course Of Treatment: Patient complains of sudden onset dizziness, mild YOUNGBLOOD, lightheadedness, nausea vomiting with movement, sweats, difficulty keeping balance around 3:20 PM today. Dizziness described as room spinning. Pt alert and oriented, states he has been unable to walk due to dizziness. Symptoms are worse with movement of head or change in body position, sx improve when patient is lying down, still with eyes closed.. Denies prior history of same. Denies vision changes, facial droop, speech changes, AMS, unilateral weakness, fever, cough, sore throat, CP, SOB,, abdominal pain, change in urine, change in BM. Medical history is HTN, HDL. Nml stress test 09/2017. Non smoker. No anticoag. Physical exam: Normal neuro. Vital signs within normal limits. CXR negative. CT head negative. Discussed patient with Dr. Mcmanus as there were EKG changes, who recommended discussing patient with Dr. Amaya absorption and adsorption engineer for neurology and possible MRI. Discussed patient with Dr. Amaya who stated that MRI was warranted if symptoms indicated. MRI ordered due to pt's age and med hx of HTN and HDL. MRI positive for right cerebral infarct. Discussed patient with Dr. Amaya again who recommended TPA administration. Discussed possible patient TPA contraindications with Dr Torres who agreed pt did not meet contraindication criteria. Patient denies recent surgery, stroke, neurosurgery, head trauma in past 3 months, anti-coag medication, history of brain tumor, hx of intercrainal hemorrhage, hx of anuerysm, hx of or current internal bleed, hx of prior TPA administration, current anticoag use. VS wnl. INR wnl. TPA administered. Neuro exam remains normal on re-eval. Patient states he feels better after TPA administration. CTA head and neck negative for large vessel occlusion, so no transfer indicated. Patient will be admitted to ICU. - Diagnoses Provider Diagnoses: Cerebellar infarct Discharge - Sign-Out/Discharge Documenting (check all that apply): Patient Departure - Discharge Plan Condition: Fair Disposition: ADMITTED TO [facility] - Billing Disposition and Condition Condition: FAIR Disposition: Admitted to [facility]
[2018-04-10] MEDS ORDERED: Iodixanol* (CONTRAST) 320 MG/ML 100 ML SDV IV ONE (20:20)
[2018-04-10] MEDS ORDERED: NS 0.9% 500 ML* 500 ML IV ONE (20:58)
--- NOTE | 2018-04-10 21:45 | RAD ---
EXAM: CT Angiography Head With Intravenous Contrast CLINICAL HISTORY: The patient age is 58 years old and is male; Signs and symptoms; Cognitive deficit; Psychomotor; Additional info: Really dizzy, slight headache, "super tired". Sudden onset, vomited. Denies chest pain, tightness, and pressure, denies arm radiation. end Facility exam id and description: CT cta hd/nk cta head/neck TECHNIQUE: Axial computed tomographic angiography images of the head with intravenous contrast using CT angiography protocol. 3D and MIP reconstructed images were created and reviewed. COMPARISON: BRAIN WO CT BRAIN WO 2018-04-10 17:25 FINDINGS: Right internal carotid artery: Mild atherosclerotic changes are identified of the cavernous right internal carotid artery, without hemodynamically significant stenosis. No aneurysm. 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 No occlusion or significant stenosis. No aneurysm. Right middle cerebral artery: Stenoses are identified within M2 and M3 segments of the bilateral middle cerebral arteries. No aneurysm. Right posterior cerebral artery: No occlusion or significant stenosis. No aneurysm. Right vertebral artery: No occlusion or significant stenosis. Left internal carotid artery: Atherosclerotic changes are identified of the cavernous left internal carotid artery, with less than 50% stenosis. No aneurysm. Left anterior cerebral artery: No occlusion or significant stenosis. No aneurysm. Left middle cerebral artery: See above. Left posterior cerebral artery: No occlusion or significant stenosis. No aneurysm. Left vertebral artery: No occlusion or significant stenosis. Basilar artery: No significant stenosis. No occlusion. No aneurysm. Dural sinuses/cerebral veins: The superior sagittal sinus, transverse sinuses, sigmoid sinuses, straight sinus, proximal internal jugular veins, internal cerebral veins are patent, without evidence of thrombosis. Bones/joints: Spondylosis is identified at multiple cervical and upper thoracic levels. Lymph nodes: Intraparotid and periparotid lymph nodes are identified, with fatty justin. These lymph nodes are nonspecific. IMPRESSION: 1. Stenoses are identified within M2 and M3 segments of the bilateral middle cerebral arteries. 2. Atherosclerotic changes are identified of the cavernous left internal carotid artery, with less than 50% stenosis. 3. Additional findings described above. EXAM: CT Angiography Neck With Intravenous Contrast EXAM DATE/TIME: 04/10/2018 8:14 PM CLINICAL HISTORY: The patient age is 58 years old and is male; Signs and symptoms; Cognitive deficit; Psychomotor; Additional info: Really dizzy, slight headache, "super tired". Sudden onset, vomited. Denies chest pain, tightness, and pressure, denies arm radiation. end Facility exam id and description: CT cta hd/nk cta head/neck TECHNIQUE: Axial computed tomographic angiography images of the neck with intravenous contrast using CT angiography protocol. 3D and MIP reconstructed images were created and reviewed. COMPARISON: No relevant prior studies available. FINDINGS: VASCULATURE: Right common carotid artery: Evaluation of the common carotid arteries is limited by suboptimal enhancement, without significant stenosis or occlusion. Right internal carotid artery: Atherosclerotic changes are visualized of the proximal right internal carotid artery, with approximately 55% stenosis. Right external carotid artery: No occlusion. Right vertebral artery: Venous enhancement significantly limit evaluation of the proximal right vertebral artery. There is no significant stenosis or occlusion of the remaining right vertebral artery. Left common carotid artery: See above. Left internal carotid artery: There is atherosclerosis of the proximal left internal carotid artery, with approximately 40% stenosis. No dissection or occlusion. Left external carotid artery: No occlusion. Left vertebral artery: There is increased tortuosity of the proximal left vertebral artery, without significant stenosis or occlusion. NECK: Bones/joints: There is straightening of the lordotic curvature of the cervical spine. There is straightening of the lordotic curvature of the cervical spine. Soft tissues: No mass. Lung apices: Patchy nonspecific groundglass density and atelectatic changes are identified within the lungs bilaterally. CAROTID STENOSIS REFERENCE USING NASCET CRITERIA: % ICA stenosis = (1 - narrowest ICA diameter/diameter of distal cervical ICA) x 100. Mild - <50% stenosis. Moderate - 50-69% stenosis. Severe - 70-94% stenosis. Near occlusion - 95-99% stenosis. Occluded - 100% stenosis. IMPRESSION: 1. Atherosclerotic changes are visualized of the proximal right internal carotid artery, with approximately 55% stenosis. 2. There is atherosclerosis of the proximal left internal carotid artery, with approximately 40% stenosis. 3. Additional findings described above. R0
[2018-04-10] MEDS ORDERED: Senna TAB PO PRN (23:03)
[2018-04-10] MEDS ORDERED: Docusate CAP* 100 MG PO PRN (23:03)
[2018-04-10] MEDS ORDERED: Al Hydrox/Mg Hydrox/Simet LIQ* 30 ML UDC PO PRN (23:03)
[2018-04-11] MEDS: NS 0.9% 1000 ML* 1,000 ML IV SCH ×3 (00:06→15:56)
[2018-04-11] MEDS ORDERED: Atorvastatin* 80 MG TAB PO SCH (00:10)
[2018-04-11] MEDS ORDERED: Atorvastatin* 80 MG TAB ONE (00:15)
[2018-04-11] MEDS: Acetaminophen TAB* 325 MG PO PRN ×3 (00:32→22:25)
[2018-04-11] MEDS: CMCS:Pravastatin (NF) 20 MG TAB PO SCH ×2 (02:19→16:12)
[2018-04-11] MEDS: Ondansetron INJ* 2 MG/ML VIAL IV PRN ×4 (02:30→22:44)
[2018-04-11 05:13] LABS: ABS Basophils 0 10^3/ul (0-0.2); ABS Eosinophils 0 10^3/ul (0-0.6); ABS Lymphocytes 1.1 10^3/ul (1.0-4.8); ABS Monocytes 0.6 10^3/ul (0-0.8); ABS Neutrophils 8.4 10^3/ul (1.5-7.7); ABS Nucleated RBC 0 10^3/ul; Eosinophil % 0.2 % (0-6); Hematocrit 45 % (42-52); Hemoglobin 15.3 g/dl (14.0-18.0); Lymphocyte % 10.6 % (25-47); Mean Corpuscular HGB Conc 34 g/dl (31-36); Mean Corpuscular Hemoglobin 32 pg (27-31); Mean Corpuscular Volume 93 fL (80-94); Mean Platelet Volume 7.7 um3 (7.4-10.4); Nucleated Red Blood Cells % 0.1; Platelet Count 258 10^3/ul (150-450); Red Blood Count 4.86 10^6/ul (4.00-5.40); Red Cell Distribution Width 14 % (10.5-15); White Blood Count 10.2 10^3/ul (3.5-10.8)
[2018-04-11 05:21] LABS: INR 1.16 (0.77-1.02)
[2018-04-11 05:30] LABS: EGFR Non-African American 69.2 (>60)
--- NOTE | 2018-04-11 08:07 | HP ---
CC: Lucio Key MD* HISTORY AND PHYSICAL: DATE OF ADMISSION: 04/10/18 TIME OF EVALUATION: 2300 PRIMARY CARE PHYSICIAN: Lucio Key MD CHIEF COMPLAINT: Dizziness, nausea, vomiting, and difficulty ambulating. HISTORY OF PRESENT ILLNESS: This is a 58-year-old male with a past medical history of hypertension and hyperlipidemia who presented to the emergency room with acute onset of dizziness. The patient states he works from home, he went to go eat lunch and he was talking to his friend on the phone around 3 p.m. where he got acutely dizzy, could not walk. He was trying to call his , but he could not get the right number at first. He finally was able to get in touch with his son who brought him into the emergency room. He was also having nausea and vomiting. His dizziness was so bad he was having a hard time seeing and could not ambulate. In the emergency room, the patient had several imaging studies and was found to have an acute nonhemorrhagic right cerebellar infarct. He was given tPA and has been since referred to the hospitalist service for further evaluation. The patient states as long as he does not move, he does not have any pain, but he does get headaches with movement of his head. No numbness or tingling. He has generalized weakness. No focal weakness. No vision changes. The dizziness is still there but somewhat improved. No further nausea or vomiting. He was falling at home when the symptoms occurred, but he did not lose consciousness or hit his head. He states he would get dizzy spells when he was 17 years of age but nothing to this extent. He denies any chest pain, shortness of breath, or palpitations; otherwise, review of systems is negative. In the emergency room, as mentioned, the patient was given tPA and referred to the hospitalist service for further evaluation. PAST MEDICAL HISTORY: 1. Hypertension. 2. Hyperlipidemia. 3. Morbid obesity. MEDICATIONS: 1. Pravastatin 40 mg daily. 2. Aspirin 325 mg. The patient states he is not consistently taking this, on average takes about 2 times a week. 3. Amlodipine 5 mg p.o. daily. ALLERGIES: No known drug allergies. FAMILY HISTORY: Father from prostate cancer in his 80s. Mother from lung cancer in her 80s. SOCIAL HISTORY: The patient lives at home with his . 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 No smoking, alcohol, or illicit drug use. His healthcare proxy is his , Yesi. CODE STATUS: Full code. REVIEW OF SYSTEMS: A 14-point review of systems as mentioned in the HPI, otherwise negative. PHYSICAL EXAM: GENERAL: No acute distress, resting comfortably, noted with his eyes closed persistently. VITAL SIGNS: Temp 97.9, pulse rate 76, respiratory rate 18, oxygen saturation 94% on room air, blood pressure 122/74. HEENT: Head: Normocephalic. Pupils are equal and reactive, anicteric. Oropharynx: Mucous membranes are moist. NECK: Supple. No lymphadenopathy. RESPIRATORY: Clear to auscultation. No wheezing, rhonchi, or rales. CARDIAC: Regular rate and rhythm with ectopic beats. ABDOMEN: Soft, nontender, nondistended EXTREMITIES: No clubbing, cyanosis, or edema. +1 DPs. NEUROLOGIC: Alert and oriented x3. Cranial nerves II through XII intact. Negative pronator drift. Upper and lower muscle strength equal and symmetric. Did not attempt to ambulate him as he just received tPA. LABORATORY DATA: White count 11.4, hemoglobin 15.5, hematocrit 46, platelets 273. INR is 0.96. Sodium 137, potassium 4.2, chloride 103, bicarb 28, BUN 13, creatinine 1.19, glucose 103. Troponin is 0 x2. CRP 1.74. BNP is 21. RADIOGRAPHIC DATA: Head CT shows negative exam. Chest x-ray: No active disease. Brain MRI: Acute nonhemorrhagic right cerebellar infarct. Head CTA: Atherosclerotic changes are visualized of the proximal right internal carotid artery with approximately 55% stenosis. There is atherosclerosis of the proximal left internal carotid artery with approximately 40% stenosis. EKG shows normal sinus rhythm with PVCs. ASSESSMENT AND PLAN: This is a 58-year-old male with a past medical history of hypertension, hyperlipidemia who presents to the emergency room with acute onset of dizziness, nausea, vomiting, and ataxia, found to have a right cerebellar infarct, status post tPA. Right cerebellar infarct, status post tPA. Assessment: The patient has remained clinically stable. His nausea/vomiting has improved. He is going to get admitted to the ICU. Dr. Amaya, per ER staff, saw the patient in the emergency room. Plan: Admit him to the ICU with post tPA orders including bed rest. No further anticoagulation for the next 24 hours. We will order a CT 24 hours after his tPA was given, keep the head of the bed elevated to 20 degrees, monitor his urine output. We will order an echocardiogram, labs including a lipid panel for the morning. OT/PT and follow up with any further neurology recommendations. We will put him on atorvastatin in place of his pravastatin. Chronic medical problems: 1. Hypertension. We will allow for permissive hypertension in the setting of his acute infarct. 2. Hyperlipidemia. As mentioned, atorvastatin in place of pravastatin. 3. FEN: Bedside swallow evaluation, n.p.o. until then with gentle IV fluids. 4. DVT prophylaxis: The patient scores moderate risk. We will place him on SCDs in the setting of his tPA. 5. Code status: Full code. PATIENT TIME: Greater than 50 minutes was spent doing the history and physical , more than half the time was spent in direct patient contact and critical care time. [id number]/[facility] #: [id number] FAVIAN
--- NOTE | 2018-04-11 09:30 | CONS ---
CONSULTATION REPORT: DATE OF CONSULT: 04/10/2018. PATIENT OF: Dr. Crowley and Dr. Key. HISTORY OF PRESENT ILLNESS: This is a 58-year-old man I am asked to evaluate for stroke. He has a prior history of slightly elevated cholesterol and is also on an antihypertensive, although he says he does not have hypertension. He has been in otherwise good general health up until 3:30 this afternoon when he had acute onset of room spinning, difficulty walking, staggering, and nausea and vomiting. These symptoms were positional and he had no numbness or weakness. He had a very mild nondescript headache with this. His vision was blurry because things were spinning he notes. He presented to the ER where he was felt to have benign positional vertigo. I was called shortly after 6 about him and discussed the possibility asked if they were sure he was not having a stroke and they said they thought it was benign positional vertigo, but we will get an MRI scan. The MRI scan was obtained and called to the ER and he had an acute cerebellar infarct. I was then called at 7:15 and told what they had found out in the last note. That being documented, I recommended mixing TPA and I will call them to make sure that there is no contraindications. Then TPA was given within the 4 and a half hour window. Initially when they spoke to me on the phone at that point they thought that the last done well was 3:20 but it turns out to be 3:30. In any event there was no time to when I was called to had just to do telestroke or for me to come in before the TPA was given. He had a clear right cerebellar stroke that was acute on his MRI scan with difficulty walking and significant vertigo, so that was the basis of the decision. He has elevated cholesterol. He has apparently borderline hypertension. PAST MEDICAL HISTORY: He has had no surgeries. MEDICATIONS: His home medicines include: 1. Pravachol 40 mg daily. 2. Aspirin which he says he takes 325 daily, but he says he only takes it quite frequently. 3. Norvasc 2.5 mg daily. ALLERGIES: He has no known allergies. FAMILY HISTORY: There is no family history for stroke. He has a family history for elevated cholesterol. SOCIAL HISTORY: He does not smoke, drink, or use drugs. REVIEW OF SYSTEMS: Negative in all 14-spheres other than HPI. PHYSICAL EXAM: Temperature 97.9, pulse 91, respirations 24, blood pressure 155/ 76. He was alert and oriented with normal speech and comprehension. Full NIH stroke scale was performed. Cranial nerves: He had a right esotropia while he denied any double vision. His was not sure whether this was new. He had no clear nystagmus and he had slight past pointing on the right side compared to the left; but he had eye vision with this. His right [id number]-mq-[id number] was slightly floppier than his left. His speech was not slurred. I gave him an NIH stroke scale of 2, but he by recent report was unable to walk because of the symptoms. His strength is 5/5. He had no numbness to touch. No extensive double simultaneous stimulation. He had completely intact visual edwards. Cranial nerves II through XII intact. Chest: Clear. Cardiovascular: Regular, rate, and rhythm. Abdomen: Soft with positive bowel sounds. DIAGNOSTIC STUDIES/LAB DATA: I have reviewed his CT scan and his MRI. His MRI did show the acute right cerebellar infarct which looked like a partial infarct in the right posterior inferior cerebellar artery distribution. We obtained an emergency CTA as his TPA was infusing and those results are pending. Labs include white count of 11.4, hematocrit 46, platelets 273, INR 0.96, PTT 27.3. Chemistries showed normal electrolytes. BUN of 13, creatinine of 1.19. Normal liver function test. BNP 21, total protein 6.1. UA has not been obtained. Mr. Randall is status post a partial cerebellar infarct of this acute beginning at 3:30 today in the distribution of a right PICA artery. He is status post TPA and I discussed with him and his the risks and benefits and the fact that since that he was a difficult clinical case with his main symptom of vertigo and minimal other signs that an MRI scan was done to establish diagnosis of stroke. I discussed that the CTA will tell us if he has a large vessel occlusion that will make him a possible candidate for clot retrieval. I do not think with the degree of symptoms he has now that he would likely be currently a clot-retrieval candidate but if he had an LDL he may need to be in an institution where they would have the potential to retrieve his clots. If he were to deteriorate he will need to be hydrated. If he does not have an LDL the plan is for him to be admitted here with a CT scan in the next 24 hours barring complications. He will also need to not to follow his blood pressure parameters and I would have him hydrated both for his contrast and possibly for mild dehydration. He will need to be on statins and LDL to be done tomorrow. He will need to be on antiplatelet agents unless there is a cardioembolic reason for his stroke and I will begin the antiplatelet agent in 24 hours from the time of his TPA. Thank you for sharing his case. [id number]/[facility] #: [id number] FAVIAN
--- NOTE | 2018-04-11 10:05 | RAD ---
HISTORY: headache sp tpa COMPARISONS: MRI dated April 10, 2018 TECHNIQUE: Multiple contiguous axial CT scans were obtained of the head without intravenous contrast. FINDINGS: HEMORRHAGE/INFARCT: There is hypoattenuation of the right inferior cerebellum corresponding to the nonhemorrhagic infarct noted on the previous MRI. Elsewhere, there is no hemorrhage or acute infarct. MASSES/SHIFT: There is no mass or shift. EXTRA-AXIAL SPACES: There are no extra-axial fluid collections. SULCI AND VENTRICLES: The sulci and ventricles are normal in size and position for the patient's stated age. CEREBRUM: There are no focal parenchymal abnormalities. BRAINSTEM: There are no focal parenchymal abnormalities. CEREBELLUM: As noted above, there is hypoattenuation of the right inferior medial cerebellum. VESSELS: The vessels are grossly normal. PARANASAL SINUSES: The paranasal sinuses are clear. ORBITS: The orbits are unremarkable. BONES AND SOFT TISSUE: No bone or soft tissue abnormalities are noted. OTHER: None IMPRESSION: SUBACUTE NONHEMORRHAGIC INFARCT OF THE RIGHT INFERIOR CEREBELLUM CORRESPONDING TO THE INFARCT NOTED ON MRI.
[2018-04-11] MEDS ORDERED: Perflutren Lipid Microsphere* 3 ML VIAL ONE (11:04)
--- NOTE | 2018-04-11 11:16 | CONSULT ---
Consult Consult: Consultation Note Critical Care Requesting Physician: Dr Antwon London Reason for consult: CVA, s/p tpa Limitations in history/physical: none Date of consult: 04/11/2018 HPI: 58y M pmhx of HTN, HLD, GERD; presented to ER with dizziness, headache, lightheadedness, nausea+, vomiting+, difficulty keeping balance at 320pm 04/10. He had not documented visual, speech, focal weakness. No sob/cough/sputum/chest pain. Initial CT brain with no acute findings. He had an MRI brain showing an acute non-hemorrhagic infarct in right cerebellum. He was deemed a tPA candidate and given tpa at ~8pm. He is now in ICU, tpa completed. Overnight some nausea+, vomiting+. Moving all extremities, denying any focal weakness. ROS: negative except for pertinent positives mentioned above. PMHx: HTN, HLD, GERD PSHx: appendectomy 1979 Family History: CAD, HTN Social History: Alcohol-none, Smoking-none, Drug use-none Allergies: Allergies Allergy/AdvReac Type Severity Reaction Status Date / Time atorvastatin Allergy Unknown Verified 04/11/18 07:00 Reaction Details Home Medications: Amlodipine Besylate [Norvasc 2.5 mg tab] 2.5 mg PO DAILY #30 tab 10/24/17 [Rx Confirmed 04/10/18] Aspirin TAB* [Aspirin 325 MG TAB*] 325 mg PO DAILY #30 tab 10/24/17 [Rx Confirmed 04/10/18] Pravastatin Sodium [Pravachol] 40 mg PO DAILY #30 tablet 10/24/17 [Rx Confirmed 04/10/18] Tele: nsr, PACs Vitals: Vital Signs Temp 97.5 F 04/11/18 07:58 Pulse 74 04/11/18 06:00 Resp 20 04/11/18 06:00 BP 129/65 04/11/18 05:31 Pulse Ox 95 04/11/18 06:00 Intake & Output 04/10/18 04/11/18 04/11/18 18:59 06:59 18:59 Intake Total 915 Output Total 300 100 Balance 615 -100 Weight 99.79 kg 100.4 kg Intake: IV Fluids 730 IV FLUIDS 730 Oral 185 Output: Urine 300 100 O2/Vent: NC Infusions: NS 125 Current Medications: Acetaminophen (Tylenol Tab*) 650 mg PO Q4H PRN PRN Reason: FEVER/PAIN Last Admin: 04/11/18 00:32 Dose: 650 mg Al Hydrox/Mg Hydrox/Simethicone (Maalox Plus*) 30 ml PO Q6H PRN PRN Reason: INDIGESTION Docusate Sodium (Colace Cap*) 100 mg PO BID PRN PRN Reason: CONSTIPATION Sodium Chloride (Ns 0.9% 1000 Ml*) 1,000 mls @ 125 mls/hr IV PER RATE [facility] Last Admin: 04/11/18 07:54 Dose: 125 mls/hr Ondansetron HCl (Zofran Inj*) 4 mg IV Q4H PRN PRN Reason: NAUSEA/VOMITING Last Admin: 04/11/18 07:48 Dose: 4 mg Pravastatin Sodium (Pravachol (Nf)) 40 mg PO DAILY [facility] Last Admin: 04/11/18 02:19 Dose: 40 mg Senna (Senokot Tab*) 1 tab PO BID PRN PRN Reason: CONSTIPATION Physical Exam: General: awake, alert, no distress, no diaphoresis Head: normocephalic, atraumatic HEENT: no pallor, no icterus, moist mucous membranes Neck: soft, supple, no jvd, no stridor CVS: normal rate, regular, no murmur Resp: bilateral air entry, no rhales, no wheeze, no rhonchi, no acc muscle use Abdomen: soft, nontender, nondistended, bowel sounds present Ext: pulses+, warm, no edema Skin: intact, no breakdown, no dryness Neuro: awake, alert, orientedx3, moving all extremities 5/5; pupils reactive bilaterally; no dysarthria noted; finger-nose testing intact; left sided alternating hand+ for dysdiadokinesia Labs: Laboratory Results - last 24 hr 04/10/18 04/10/18 04/10/18 17:32 17:32 17:32 WBC 11.4 H RBC 4.99 Hgb 15.5 Hct 46 MCV 93 MCH 31 MCHC 34 RDW 13 Plt Count 273 MPV 7.8 Neut % (Auto) 81.8 Lymph % (Auto) 10.5 L Isabela % (Auto) 6.2 Eos % (Auto) 0.4 Baso % (Auto) 1.1 Absolute Neuts (auto) 9.3 H Absolute Lymphs (auto) 1.2 Absolute Monos (auto) 0.7 Absolute Eos (auto) 0 Absolute Basos (auto) 0.1 Absolute Nucleated RBC 0 Nucleated RBC % 0.1 INR (Anticoag Therapy) 0.96 APTT 27.3 Sodium 137 Potassium 4.2 Chloride 103 Carbon Dioxide 28 Anion Gap 6 BUN 13 Creatinine 1.19 H Est GFR ( Amer) 75.7 Est GFR (Non-Af Amer) 62.6 BUN/Creatinine Ratio 10.9 Glucose 103 H Calcium 8.9 Magnesium Total Bilirubin 0.40 AST 17 ALT 22 Alkaline Phosphatase 47 CK-MB (CK-2) Troponin I 0.00 C-Reactive Protein 1.74 B-Natriuretic Peptide Total Protein 6.9 Albumin 4.0 Globulin 2.9 Albumin/Globulin Ratio 1.4 Triglycerides Cholesterol LDL Cholesterol HDL Cholesterol 04/10/18 04/10/18 04/11/18 17:32 21:14 05:04 WBC RBC Hgb Hct MCV MCH MCHC RDW Plt Count MPV Neut % (Auto) Lymph % (Auto) Isabela % (Auto) Eos % (Auto) Baso % (Auto) Absolute Neuts (auto) Absolute Lymphs (auto) Absolute Monos (auto) Absolute Eos (auto) Absolute Basos (auto) Absolute Nucleated RBC Nucleated RBC % INR (Anticoag Therapy) 1.16 H APTT 31.1 Sodium Potassium Chloride Carbon Dioxide Anion Gap BUN Creatinine Est GFR ( Amer) Est GFR (Non-Af Amer) BUN/Creatinine Ratio Glucose Calcium Magnesium 1.9 Total Bilirubin AST ALT Alkaline Phosphatase CK-MB (CK-2) Troponin I 0.00 C-Reactive Protein B-Natriuretic Peptide 21 Total Protein Albumin Globulin Albumin/Globulin Ratio Triglycerides Cholesterol LDL Cholesterol HDL Cholesterol 04/11/18 04/11/18 05:04 05:04 WBC 10.2 RBC 4.86 Hgb 15.3 Hct 45 MCV 93 MCH 32 H MCHC 34 RDW 14 Plt Count 258 MPV 7.7 Neut % (Auto) 82.5 Lymph % (Auto) 10.6 L Isabela % (Auto) 6.3 Eos % (Auto) 0.2 Baso % (Auto) 0.4 Absolute Neuts (auto) 8.4 H Absolute Lymphs (auto) 1.1 Absolute Monos (auto) 0.6 Absolute Eos (auto) 0 Absolute Basos (auto) 0 Absolute Nucleated RBC 0 Nucleated RBC % 0.1 INR (Anticoag Therapy) APTT Sodium 136 Potassium 4.0 Chloride 105 Carbon Dioxide 27 Anion Gap 4 BUN 11 Creatinine 1.09 Est GFR ( Amer) 83.8 Est GFR (Non-Af Amer) 69.2 BUN/Creatinine Ratio 10.1 Glucose 127 H Calcium 8.4 L Magnesium Total Bilirubin 0.60 AST 16 ALT 19 Alkaline Phosphatase 42 CK-MB (CK-2) 1.5 Troponin I 0.00 C-Reactive Protein B-Natriuretic Peptide Total Protein 6.2 L Albumin 3.6 Globulin 2.6 Albumin/Globulin Ratio 1.4 Triglycerides 108 Cholesterol 296 LDL Cholesterol 235 HDL Cholesterol 39.1 Imaging: CT brain 04/10 - reviewed CT brain 04/11 - right cerebellar subacute nonhem infarct+ MRI brain 04/10 - right cerebellar acute nonhem infarct+ Assessment: 58y M pmhx of HTN, HLD, GERD; presented to ER with dizziness, headache, lightheadedness, nausea+, vomiting+, difficulty keeping balance at 320pm 04/10. He had not documented visual, speech, focal weakness. No sob/cough/ sputum/chest pain. Initial CT brain with no acute findings. He had an MRI brain showing an acute non-hemorrhagic infarct in right cerebellum. He was deemed a tPA candidate and given tpa at ~8pm. Acute Right Cerebellar Infarct; s/p tpa 04/10 HTN HLD Plan: Neuro- s/p tpa; neurochecks q1h till 8pm. Repat CT brain this morning due to n/ v. CT brain tonight. maintain permissive hypertension, <180. ASA tonight/statin now. asp prec. swallow eval. bleeding prec. CVS- maintain permissive hypertension. restart asa/statin. on NS 125cc/hr Resp- NC, no distress. wean down fio2. ID- afebrile. wbc 11. no abx indicated. GI- NPO. swallow eval today. zofran prn. Renal- Cr okay. K okay. no acidosis. IVF NS 125cc/hr. Heme- hg stable. plt okay. restart asa tonight. Endo- fingerstick as needed. check hba1c/tsh. Musculsk- pressure ulcer prophylaxis. Bedrest. pt/ot tomorrow Wounds- none Nutrition- swallow eval. DVT prophylaxis: SCDs GI prophylaxis: - Central Line:- Arterial Line:- Hitchcock Cathetor:- Disposition: ICU for neurochecks post tpa Code Status: full code Total Critical Care time is 30 minutes, excluding procedures/teaching Kev Marin MD Rail Maintenance Worker (Electronically Signed)
--- NOTE | 2018-04-11 12:54 | ECHO ---
Patient: DC DOMINGUEZ [facility] Rec#: [id number] : 1960 Date: 04/11/2018 Age: 58y Height: 163 cm / 64.2 in Weight: 100 kg / 220.4 lbs Sex: M BSA: 2.04 Room#: ICU 10 Admit Date#: 04/10/2018 Type: Inpatient Referring: Lita Kapoor Reading: Arlene Fitzpatrick MD Impregnation Operator: Brigid Negron,LUIS ALFREDOCS,RDMS CC: Lucio Key MD Transthoracic Echocardiogram Indication: CVA BP: 129/65 HR: 81 Rhythm: NSR with PVCs Findings History: HTN, HLD, angina Technical Comments: The study quality is fair. Left Ventricle: The left ventricular chamber size is normal. There is no left ventricular hypertrophy. Global left ventricular wall motion and contractility are within normal limits. The estimated ejection fraction is 55-60%. There is no consistent Doppler evidence of clinically significant diastolic dysfunction. Left Atrium: The left atrium is slightly dilated. Right Ventricle: The right ventricular chamber size and systolic function are within normal limits. Right Atrium: The right atrial cavity size is normal. Aortic Valve: The aortic valve is trileaflet. Systolic excursion of the aortic valve is normal. There is aortic annular calcification. There is no evidence of aortic regurgitation. There is no evidence of aortic stenosis. Mitral Valve: The mitral valve leaflets appear normal. There is no evidence of mitral regurgitation. There is no evidence of mitral stenosis. Tricuspid Valve: The tricuspid valve leaflets are normal. There is trace tricuspid regurgitation. Unable to estimate the right ventricular systolic pressure. Pulmonic Valve: The pulmonic valve appears normal. There is a trace pulmonic regurgitation. Pericardium: There is no significant pericardial effusion. Aorta: The aortic root appears normal. There is no dilatation of the aortic arch. Pulmonary Artery: The main pulmonary artery appears normal. Venous: The inferior vena cava appears normal in size. There is a greater than 50% respiratory change in the inferior vena cava dimension. Contrast: Definity was used to optimize study. A total of 2 ml was used Conclusions The left ventricular chamber size is normal. Global left ventricular wall motion and contractility are within normal limits. The estimated ejection fraction is 55-60%. The right ventricular chamber size and systolic function are within normal limits. No evidence of intracardiac shunting on color Doppler, no bubble study performed. All valves appear structurally normal with good function. There is trace tricuspid regurgitation. No prior study to compare. Measurements Name Value Normal Range RVIDd (AP) 2D 2.6 cm (0.9 - 2.6) RVDdMajor (2D) 2.5 cm (2.2 - 4.4) RAd ISD 4CH 5 cm (3.4 - 4.9) RA (A4C)W 3.4 cm (2.9 - 4.6) IVSd (2D) 1 cm (0.6 - 1) LVPWd (2D) 1 cm (0.6 - 1) LVIDd (2D) 4.3 cm (3.6 - 5.4) LVIDs (2D) 3 cm - LV FS (2D) 29 % (25 - 45) Aortic Annulus 2 cm (1.4 - 2.6) Ao root diameter (2D) 2.3 cm (2.1 - 3.5) Ascending Ao 2.4 cm (2.1 - 3.4) Aortic arch 3.1 cm (1.8 - 3.4) LA dimension (AP) 2D 4.1 cm (2.3 - 3.8) LAd ISD 4CH 6.7 cm (2.9 - 5.3) LA ISD 4CH W 4.1 cm (2.5 - 4.5) Name Value Normal Range LA ESV BP (A/L) index 28 ml/m2 - Name Value Normal Range MV E-wave Vmax 0.8 m/sec - MV deceleration time 187 msec - MV A-wave Vmax 0.6 m/sec - MV E:A ratio 1.3 ratio - P. vein S-wave Vmax 0.6 m/sec - P. vein D-wave Vmax 0.4 m/sec - P. vein S:D Vmax ratio 1.5 ratio - P. vein A-wave duration 124 msec - LV septal e' Vmax 0.07 m/sec - LV lateral e' Vmax 0.09 m/sec - LV E:e' septal ratio 11 ratio - LV E:e' lateral ratio 9 ratio - Name Value Normal Range AV Vmax 1.5 m/sec - AV VTI 28 cm - AV peak gradient 9 mmHg - AV mean gradient 4 mmHg - LVOT Vmax 1.1 m/sec - LVOT VTI 22 cm - LVOT peak gradient 5 mmHg - LVOT mean gradient 3 mmHg - ANGUS Vmax 0.5 m/sec - Name Value Normal Range RAP 8 mmHg - IVC diameter 2 cm - Name Value Normal Range PV Vmax 0.8 m/sec - PV peak gradient 2.6 mmHg -
[2018-04-11] MEDS ORDERED: PROCHLORPERAZINE INJ 5 MG/ML 2 ML VIAL IV PRN (14:46)
--- NOTE | 2018-04-11 20:49 | RAD ---
EXAM: CT Head Without Intravenous Contrast CLINICAL HISTORY: 58 years old, male; Condition or disease; Other: CVA; Additional info: S/P tpa TECHNIQUE: Axial computed tomography images of the head/brain without intravenous contrast. COMPARISON: BRAIN WO CT BRAIN WO 2018-04-10 17:25 FINDINGS: Brain: A low attenuation area is noted in the inferior aspect of the right cerebellar hemisphere consistent with nonhemorrhagic infarction. There are no extra-axial fluid collections. No midline shift. Ventricles: Unremarkable. No ventriculomegaly. Bones/joints: No acute fracture or aggressive osseous lesions Soft tissues: Unremarkable. Sinuses: Unremarkable as visualized. No acute sinusitis. Mastoid air cells: Unremarkable as visualized. No mastoid effusion. IMPRESSION: Low attenuation area in the inferior right cerebellum consistent with nonhemorrhagic infarction, similar in appearance to 04/10/18 head CTA, the most recent images available for comparison.
[2018-04-11] MEDS ORDERED: Atorvastatin* 80 MG TAB PO ONE (23:06)
[2018-04-12] MEDS: NS 0.9% 1000 ML* 1,000 ML IV SCH ×2 (01:13→09:32)
--- NOTE | 2018-04-12 03:53 | PN ---
NEUROLOGY FOLLOWUP: DATE OF SERVICE: 04/11/2018. PATIENT OF: Dr. Kapoor and Dr. Marin. HISTORY: This is a followup of 58-year-old man with right PICA stroke yesterday. He notes that he has more headache today, is nondescript, mostly in occipital, it was associated with significant nausea. He has some dizziness today, he has not been up and about. He is status tPA. MEDICATIONS: Include: 1. Colace. 2. Zofran. 3. Pravachol. 4. Compazine. 5. Senokot. PHYSICAL EXAMINATION: Temperature 98.7, pulse 81, respirations 20, blood pressure 129/65. When I saw him this morning, he is alert and oriented with normal speech and comprehension. His right esotropia appeared resolved. He had no nystagmus with slight past pointing on the right side compared to the left. Strength is 5/5 bilaterally. There is no sensory deficit to touch. Reflexes were 1+ and equal downgoing toes. Chest: Clear. Cardiovascular: Regular rate and rhythm without murmur. DIAGNOSTIC STUDIES/LAB DATA: I repeated a CT scan because of the new headache and nausea to make sure there were no complications from the tPA at that point; this was normal. His labs include white count 10.2, hematocrit 45, and platelet count of 258. Normal chemistries. His LDL was 235. He had a PTT of 31. INR of 1.16. 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 IMPRESSION AND PLAN: Mr. Randall has significantly elevated cholesterol and has evidence on his CTA of atherosclerotic disease, which is most likely cause of his cerebellar stroke. He tolerated the tPA well clinically to this point and he will receive a CT tonight and we will then begin dual antiplatelet therapy. I have discussed this with Dr. Marin. [id number]/[facility] #: [id number] [facility]annes
[2018-04-12] MEDS: Acetaminophen TAB* 325 MG PO PRN (05:13)
[2018-04-12] MEDS: Ondansetron INJ* 2 MG/ML VIAL IV PRN ×2 (06:05→17:07)
[2018-04-12] MEDS: CMCS:Pravastatin (NF) 20 MG TAB PO SCH (08:47)
--- NOTE | 2018-04-12 09:34 | PN ---
Progress Note - Progress Note Date of Service: 04/12/18 Note: Progress Note -- Critical Care 24 hour events: -s/p tpa; no new events; nausea+ but improving, no vomitting -dizzy at times still Tele: nsr Vitals: Vital Signs Temp 98.2 F 04/12/18 08:12 Pulse 54 04/12/18 08:00 Resp 10 04/12/18 08:00 BP 124/75 04/12/18 08:00 Pulse Ox 94 04/12/18 08:00 Intake & Output 04/11/18 04/12/18 04/12/18 18:59 06:59 18:59 Intake Total 1215 2030 Output Total 1055 1250 Balance 160 780 Weight 101.378 kg Intake: IV Fluids 1035 1430 NS 1035 1430 Oral 180 600 Output: Urine 1025 1250 Emesis 30 Other: # Voids 2 O2/Vent: NC Infusions: NS Current Medications: Acetaminophen (Tylenol Tab*) 650 mg PO Q4H PRN PRN Reason: FEVER/PAIN Last Admin: 04/12/18 05:13 Dose: 650 mg Al Hydrox/Mg Hydrox/Simethicone (Maalox Plus*) 30 ml PO Q6H PRN PRN Reason: INDIGESTION Aspirin (Aspirin 81 Mg Chew Tab*) 81 mg PO DAILY JENNY Atorvastatin Calcium (Lipitor*) 80 mg PO 1700 JENNY Docusate Sodium (Colace Cap*) 100 mg PO BID PRN PRN Reason: CONSTIPATION Ondansetron HCl (Zofran Inj*) 4 mg IV Q4H PRN PRN Reason: NAUSEA/VOMITING Last Admin: 04/12/18 06:05 Dose: 4 mg Prochlorperazine Edisylate (Compazine Inj*) 5 mg IV Q8HR PRN PRN Reason: NAUSEA/VOMITING Last Admin: 04/12/18 09:11 Dose: 5 mg Senna (Senokot Tab*) 1 tab PO BID PRN PRN Reason: CONSTIPATION Physical Exam: General: awake, alert, no distress, no diaphoresis Head: normocephalic, atraumatic HEENT: no pallor, no icterus, moist mucous membranes Neck: soft, supple, no jvd, no stridor CVS: normal rate, regular, no murmur Resp: bilateral air entry, no rhales, no wheeze, no rhonchi, no acc muscle use Abdomen: soft, nontender, nondistended, bowel sounds present Ext: pulses+, warm, no edema Skin: intact, no breakdown, no dryness Neuro: awake, alert, orientedx3, moving all extremities 5/5; pupils reactive bilaterally; no dysarthria noted; finger-nose testing intact; left sided alternating hand+ for dysdiadokinesia Labs: Laboratory Results - last 24 hr 04/12/18 04:56 TSH 4.51 Imaging: CT brain 04/10 - reviewed CT brain 04/11 - right cerebellar subacute nonhem infarct+ MRI brain 04/10 - right cerebellar acute nonhem infarct+ CT brain 04/11 - no change; right inferocerebellar infarct+ Assessment: 58y M pmhx of HTN, HLD, GERD; presented to ER with dizziness, headache, lightheadedness, nausea+, vomiting+, difficulty keeping balance at 320pm 04/10. He had not documented visual, speech, focal weakness. No sob/cough/ sputum/chest pain. Initial CT brain with no acute findings. He had an MRI brain showing an acute non-hemorrhagic infarct in right cerebellum. He was deemed a tPA candidate and given tpa at ~8pm. Acute Right Cerebellar Infarct; s/p tpa 04/10 HTN HLD Plan: Neuro- s/p tpa; repeat CT brain 04/11 stable. some nausea improving. change neurocehcks q4h. BP stable. Asa/statin. pt/ot CVS- BP stable. d/c IVF. asa/statin. no arrythmias noted. TTE without structural abn Resp- NC, no distress. wean down fio2. ID- afebrile. no abx indicated. GI- PO diet as tolerated. antiemetics prn. Renal- making urine. d/c ivf. Heme- hg stable. plt okay. cont asa. Endo- fingerstick as needed. tsh normal. Musculsk- pressure ulcer prophylaxis. pt/ot Wounds- none Nutrition- heart healthy diet DVT prophylaxis: SCDs GI prophylaxis: - Central Line:- Arterial Line:- Hitchcock Cathetor:- Disposition: transfer to [facility] Code Status: full code Kev Marin MD [employer] (Electronically Signed)
[2018-04-12] MEDS: Aspirin 81 mg CHEW TAB* 81 MG TAB.CHEW PO SCH (11:38)
[2018-04-12] MEDS ORDERED: Meclizine TAB* 12.5 MG PO SCH ×2 (14:00)
[2018-04-12] MEDS ORDERED: Atorvastatin* 80 MG TAB PO SCH (17:00)
[2018-04-12] MEDS: Meclizine TAB* 12.5 MG PO PRN (17:03)
[2018-04-12 17:51] LABS: EGFR Non-African American 65.7 (>60)
[2018-04-12] MEDS ORDERED: Pravastatin (NF) 20 MG TAB PO SCH (21:00)
[2018-04-13] MEDS: Aspirin 81 mg CHEW TAB* 81 MG TAB.CHEW PO SCH (09:29)
--- NOTE | 2018-04-13 12:10 | PN ---
NEUROLOGY FOLLOWUP: DATE OF SERVICE: 04/12/2018. HISTORY: This 58-year-old man who had a right PICA cerebellar infarct status post tPA. His repeat CT scan is reviewed and did show the stroke but no hemorrhage and he was started on 81 mg of aspirin yesterday. He remains dizzy, although slightly improved and not nauseous like he was yesterday. The dizziness does seem to be positional. He has no current headache and no weakness. His medicines have been unchanged, other than just added meclizine to his regimen, since some of his dizziness is positional. He has no other complaints. PHYSICAL EXAMINATION: Temperature 98.1, pulse 65, respirations 18, blood pressure 145/82. He is alert and oriented with normal speech and comprehension. Cranial nerves II through XII are intact. Face seems to be symmetric. Motor exam revealed 5/5 strength bilaterally. [id number] is now intact on the right arm as well as the left. Chest: Clear. Cardiovascular : Regular rate and rhythm. DIAGNOSTIC STUDIES/LAB DATA: His CT scan showed the stroke as mentioned above. His LDL was 235, and Dr. Marin has increased his Pravachol. I discussed with Familia and his family that the CT scan was unchanged just to show the stroke that he will be on aspirin, please increase the aspirin to 325 mg. He is on elevated statin, Lipitor 80 mg may be best for his elevated LDL. I discussed with him that the most likely etiology for his stroke is atherosclerotic disease secondary in his case to elevated cholesterol, being overweight, and possibly sleep apnea. He will need a sleep study when he goes home. He and his are pretty sure he has sleep apnea. I also began some Antivert for him for some of his dizziness his positional, but if it does not work he should just stop it. I think his symptoms are improving. Thank you for sharing his case. [id number]/[facility] #: [id number] FAVIAN
[2018-04-13] MEDS: Meclizine TAB* 12.5 MG PO PRN (16:37)
[2018-04-13 16:58] VITALS: BP 134/82
[2018-04-13] MEDS ORDERED: Atorvastatin* 80 MG TAB PO SCH (17:00)
[2018-04-13] MEDS ORDERED: Clopidogrel TAB* 75 MG PO ONE (17:12)
--- NOTE | 2018-04-13 17:26 | DCNOTE ---
Subjective Date of Service: 04/13/18 Interval History: Patient reports his dizziness has almost resolved and he is much better today. He feels steady on his feet. He is asking to go home. He and his asked many questions regarding diet and lifestyle optimization, they are interested in a referral to [facility]. he appears to be moticated as well as his states she would like to join him. Dr. Amaya and I saw the patient together - per Dr. Amaya the patients appears better today and symptoms have improved. Objective Active Medications: Acetaminophen (Tylenol Tab*) 650 mg PO Q4H PRN PRN Reason: FEVER/PAIN Last Admin: 04/12/18 05:13 Dose: 650 mg Al Hydrox/Mg Hydrox/Simethicone (Maalox Plus*) 30 ml PO Q6H PRN PRN Reason: INDIGESTION Aspirin (Ecotrin Ec Tab*) 325 mg PO DAILY JENNY Atorvastatin Calcium (Lipitor*) 80 mg PO 1700 JENNY Last Admin: 04/13/18 16:37 Dose: 80 mg Docusate Sodium (Colace Cap*) 100 mg PO BID PRN PRN Reason: CONSTIPATION Meclizine HCl (Antivert Tab*) 12.5 mg PO Q8H PRN PRN Reason: DIZZINESS Last Admin: 04/13/18 16:37 Dose: 12.5 mg Ondansetron HCl (Zofran Inj*) 4 mg IV Q4H PRN PRN Reason: NAUSEA/VOMITING Last Admin: 04/12/18 17:07 Dose: 4 mg Prochlorperazine Edisylate (Compazine Inj*) 5 mg IV Q8HR PRN PRN Reason: NAUSEA/VOMITING Last Admin: 04/12/18 09:11 Dose: 5 mg Senna (Senokot Tab*) 1 tab PO BID PRN PRN Reason: CONSTIPATION Vital Signs - 8 hr 04/13/18 04/13/18 11:13 16:05 Temperature 98.0 F 99.0 F Pulse Rate 57 37 Respiratory 16 16 Rate Blood Pressure 127/67 134/82 (mmHg) O2 Sat by Pulse 93 94 Oximetry Oxygen Devices in Use Now: None Appearance: obese 58 yo male sitting up on the side of the bed in NAD+O x3 Eyes: No Scleral Icterus, PERRLA Ears/Nose/Mouth/Throat: NL Teeth, Lips, Gums, Mucous Membranes Moist Neck: NL Appearance and Movements; NL JVP Respiratory: Symmetrical Chest Expansion and Respiratory Effort, Clear to Auscultation Cardiovascular: NL Sounds; No Murmurs; No JVD, RRR, No Edema Abdominal: NL Sounds; No Tenderness; No Distention Neurological: Alert and Oriented x 3, NL Sensation, NL Muscle Strength and Tone , - - gait is a little unsteady but ambulates well. FInger to nose test intact. no pronator drift. No facial droop. Strength is 5/5 throughout. Lines/Tubes/Other Access: Clean, Dry and Intact Peripheral IV Nutrition: Taking PO's Result Diagrams: 04/11/18 05:04 04/12/18 17:26 Additional Lab and Data: Lab Results 04/10/18 04/10/18 04/10/18 Range/Units 17:32 17:32 17:32 WBC 11.4 H (3.5-10.8) 10^3/ul RBC 4.99 (4.00-5.40) 10^6/ul Hgb 15.5 (14.0-18.0) g/dl Hct 46 (42-52) % MCV 93 (80-94) fL MCH 31 (27-31) pg MCHC 34 (31-36) g/dl RDW 13 (10.5-15) % Plt Count 273 (150-450) 10^3/ul MPV 7.8 (7.4-10.4) um3 Neut % (Auto) 81.8 (38-83) % Lymph % (Auto) 10.5 L (25-47) % [place] % (Auto) 6.2 (0-7) % Eos % (Auto) 0.4 (0-6) % Baso % (Auto) 1.1 (0-2) % Absolute Neuts (auto) 9.3 H (1.5-7.7) 10^3/ul Absolute Lymphs (auto) 1.2 (1.0-4.8) 10^3/ul Absolute Monos (auto) 0.7 (0-0.8) 10^3/ul Absolute Eos (auto) 0 (0-0.6) 10^3/ul Absolute Basos (auto) 0.1 (0-0.2) 10^3/ul Absolute Nucleated RBC 0 10^3/ul Nucleated RBC % 0.1 INR (Anticoag Therapy) 0.96 (0.77-1.02) Sodium 137 (135-145) mmol/L Potassium 4.2 (3.5-5.0) mmol/L Chloride 103 (101-111) mmol/L Carbon Dioxide 28 (22-32) mmol/L Anion Gap 6 (2-11) mmol/L BUN 13 (6-24) mg/dL Creatinine 1.19 H (0.67-1.17) mg/dL Est GFR ( Amer) 75.7 (>60) Est GFR (Non-Af Amer) 62.6 (>60) BUN/Creatinine Ratio 10.9 (8-20) Glucose 103 H (70-100) mg/dL Calcium 8.9 (8.6-10.3) mg/dL Total Bilirubin 0.40 (0.2-1.0) mg/dL AST 17 (13-39) U/L ALT 22 (7-52) U/L Alkaline Phosphatase 47 (34-104) U/L Troponin I 0.00 (<0.04) ng/mL C-Reactive Protein 1.74 (<8.01) mg/L B-Natriuretic Peptide ( - 100) pg/mL Total Protein 6.9 (6.4-8.9) g/dL Albumin 4.0 (3.2-5.2) g/dL Globulin 2.9 (2-4) g/dL Albumin/Globulin Ratio 1.4 (1-3) // Range/Units 17:32 WBC (3.5-10.8) 10^3/ul RBC (4.00-5.40) 10^6/ul Hgb (14.0-18.0) g/dl Hct (42-52) % MCV (80-94) fL MCH (27-31) pg MCHC (31-36) g/dl RDW (10.5-15) % Plt Count (150-450) 10^3/ul MPV (7.4-10.4) um3 Neut % (Auto) (38-83) % Lymph % (Auto) (25-47) % [place] % (Auto) (0-7) % Eos % (Auto) (0-6) % Baso % (Auto) (0-2) % Absolute Neuts (auto) (1.5-7.7) 10^3/ul Absolute Lymphs (auto) (1.0-4.8) 10^3/ul Absolute Monos (auto) (0-0.8) 10^3/ul Absolute Eos (auto) (0-0.6) 10^3/ul Absolute Basos (auto) (0-0.2) 10^3/ul Absolute Nucleated RBC 10^3/ul Nucleated RBC % INR (Anticoag Therapy) (0.77-1.02) Sodium (135-145) mmol/L Potassium (3.5-5.0) mmol/L Chloride (101-111) mmol/L Carbon Dioxide (22-32) mmol/L Anion Gap (2-11) mmol/L BUN (6-24) mg/dL Creatinine (0.67-1.17) mg/dL Est GFR ( Amer) (>60) Est GFR (Non-Af Amer) (>60) BUN/Creatinine Ratio (8-20) Glucose (70-100) mg/dL Calcium (8.6-10.3) mg/dL Total Bilirubin (0.2-1.0) mg/dL AST (13-39) U/L ALT (7-52) U/L Alkaline Phosphatase (34-104) U/L Troponin I (<0.04) ng/mL C-Reactive Protein (<8.01) mg/L B-Natriuretic Peptide 21 ( - 100) pg/mL Total Protein (6.4-8.9) g/dL Albumin (3.2-5.2) g/dL Globulin (2-4) g/dL Albumin/Globulin Ratio (1-3) Microbiology and Other Data: Microbiology 04/11/18 01:00 Nasal Screen MRSA (PCR) - Final Nasal Mrsa Not Detected Assess/Plan/Problems-Billing Assessment: - Patient Problems (1) CVA (cerebral vascular accident) Comment: ichemic CVA s/p tPa - right cerebellar infarct - stroke secondary to presumed atherosclerotic disease appreciate neurology consult - ok for DC to home. Recommends sleep study. Pt will try to go back on lipitor (this caused generalized atigue in the past but pt is willing to try again), continue plavix and ASA for 2 months then down to a single agent. He will f/u with Dr. Ortega after sleep study in approx 1 month. -CTA head/neck - artherosclerotic changes are visualized of the proximal right internal carotid artery with approx 55% stenosis. There is atherosclerosis of the proximal left internal carotid artery, 40%. - TTE - 55-60% - global wall motion and contractility are within normal limits. negative bubble study. - tele - no noted arrythmia - Referral to Dr. Salazar for sleep study - Lifestyle and diet education 30 minutes consultation - pt is motivated to loose weight[facility] (2) Dizziness Comment: resolved. suspect secondary to CVA. (3) HLD (hyperlipidemia) Comment: Lipitor (4) DVT prophylaxis Comment: HSQ Status and Disposition: plan for DC to home
--- NOTE | 2018-04-14 00:41 | PN ---
PROGRESS NOTES: DATE OF SERVICE: 04/13/18 PATIENT OF: Frida Palafox NP. HISTORY: Mr. Randall feels much better. He feels his nausea is mostly gone. He is not feeling dizzy. He is up and out of bed and walking. He has no headache. He is taking meclizine and thinks it has helped that he has gone many hours without it as well. MEDICATIONS: His medications include the, 1. Maalox Plus p.r.n. 2. Aspirin 325 daily. 3. Lipitor 80 mg daily. 4. Colace 100 mg b.i.d. 5. Antivert p.r.n. 6. Compazine 5 mg IV p.r.n. nausea and vomiting. PHYSICAL EXAMINATION: Temperature 98, pulse 57, respirations 16, blood pressure 127/ . On exam, he is alert and oriented with normal speech and comprehension. Cranial nerves II through XII are intact. No nystagmus. Motor exam revealed normal tone and strength. Normal nohzny-fz-hfho. He was able to walk relatively steadily, occasionally he touched the wall and turned but appeared stable. ASSESSMENT AND PLAN: He has made good recovery from his PICA stroke secondary to presumed atherosclerotic disease. He is going to try to stay on his Lipitor while he has had some muscle cramping in the past with it. He is going to go on aspirin plus Plavix for 2 months and then down to a single agent with the concern with his stroke was secondary to atherosclerotic disease. He is going to address his living habits and his dietary issues and doing a sleep study and I will see him back following that. Thank you for sharing his case. [id number]/[facility] #: [id number] FAVIAN
[2018-04-14] MEDS ORDERED: Aspirin EC TAB* 325 MG PO SCH (09:00)
--- NOTE | 2018-04-16 00:19 | DS ---
CC: Dr. Key * DISCHARGE SUMMARY: DATE OF ADMISSION: 04/10/18 DATE OF DISCHARGE: 04/13/18 PROVIDER: Kristofer Brownlee NP ATTENDING PHYSICIAN: Dr. Greenberg * (report dictated by Kristofer Brownlee NP). PRIMARY CARE PROVIDER: Dr. Key. CONSULTING NEUROLOGIST: Dr. Amaya. DISCHARGE DIAGNOSES: 1. Cerebellar infarct, status post tPA. 2. Atherosclerotic disease. 3. Obesity. 4. Type 2 diabetes. 5. Vertigo/dizziness felt to be secondary to stroke. DISCHARGE MEDICATIONS: 1. Aspirin 325 mg p.o. daily. 2. Norvasc 2.5 mg p.o. daily. 3. Meclizine 12.5 mg p.o. q.8 hours p.r.n. 4. Plavix 75 mg p.o. daily. 5. Lipitor 80 mg p.o. daily. HISTORY OF PRESENT ILLNESS AND HOSPITAL COURSE: Please see history and physical by Dr. Lita Kapoor for full admission details, but in summary, this is a 58-year-old male, who presented to the emergency department on 04/10/18 with complaint of dizziness, nausea, vomiting, and difficulty ambulating, found to have a right cerebellar stroke. He received tPA in the emergency department. He was admitted to the ICU with status post tPA orders. In the emergency department, his initial brain CT showed no acute pathology. He then underwent an MRI of the brain on 04/10/18, which did show an acute nonhemorrhagic right cerebellar infarct. He was seen in consultation by neurologist, Dr. Amaya, throughout the hospitalization. The patient had a head and neck CTA, which showed, impression: "1. Atherosclerotic changes are visualized in the proximal right internal carotid artery, with approximately 55% stenosis. 2. There was atherosclerosis of the proximal left internal carotid artery with approximately 40% stenosis." Dr. Amaya thinks most likely his stroke is secondary to atherosclerotic disease. He recommends a full-strength aspirin 325 mg daily and Plavix 75 mg p.o. daily as well as a higher dose of statin on which he will be discharged home on [address] Amaya recommends continuing dual-antiplatelet therapy for at least 2 months and then down to a single agent. The patient did undergo a repeat brain CT 24 hours after he was given tPA, which showed the subacute nonhemorrhagic infarct of the right inferior cerebellum corresponding to the infarct noted on the MRI, but otherwise stable. He did undergo a third brain CT on 04/11/18 showing "low attenuation area in the inferior right cerebellum consistent with a nonhemorrhagic infarct similar to the appearance of 04/10/18 head CTA" was noted to be stable as well. The patient continued to have some intermittent dizziness throughout hospitalization, which did improve with meclizine. It was also suspected that this improved when his stroke symptoms improved. Today, on discharge, the patient is stable. He reports no dizziness with ambulation. He feels steady on the feet. He is asking to go home. The patient was seen by myself as well as Dr. Amaya, who agrees the patient is stable for discharge to home. The patient's lipid profile is noted to have triglycerides of 108, cholesterol of 296, LDL of 235, HDL of 39. Due to the thought that most likely this stroke was secondary to atherosclerotic changes, it was discussed with the patient that healthy lifestyle changes were very important such as diet and exercise could reduce his risk of a second stroke. The patient is very interested in diet and lifestyle changes as well as his is very supportive. The patient will be referred to [facility] at discharge. The patient did undergo a transthoracic echocardiogram, which showed a negative bubble study and no evidence of intracardiac shunting on color Doppler. His estimated ejection fraction is 55% to 60% with global left ventricular wall motion and contractility within normal limits. All valves appeared structurally normal with good function. There is trace tricuspid regurgitation. The right ventricular chamber size and systolic function are within normal limits. DISCHARGE PLAN: 1. The patient is stable for discharge home. He is to follow up with his primary care provider within 3 to 5 days. 2. The patient has been referred to Dr. Salazar for a sleep study and it is possible he has undiagnosed sleep apnea. 3. Follow up with Dr. Amaya after the sleep study in approximately 1 month. 4. Referral to [facility]. TIME SPENT: Approximately 60 minutes was spent on this discharge. KRISTOFER BROWNLEE, RAULITO [id number]/[facility] #: [id number] FAVIAN
== END 2018-04-13 19:00 | disposition home or self-care (01) | DRG 45 ==
LOC: ED 16:30 → ICU 23:03 → MEDTELE 04-12 11:52
PROVIDERS: ADMIT Pediatrics; ATTEND Internal Medicine
DX: I63.233 Cerebral infarction due to unspecified occlusion or stenosis of bilateral carotid arteries (principal); E11.9 Type 2 diabetes mellitus without complications; R42 Dizziness and giddiness; I07.1 Rheumatic tricuspid insufficiency; I10 Essential (primary) hypertension; E66.01 Morbid (severe) obesity due to excess calories; E78.5 Hyperlipidemia, unspecified; K21.9 Gastro-esophageal reflux disease without esophagitis; R40.2362 Coma scale, best motor response, obeys commands, at arrival to emergency department; R40.2142 Coma scale, eyes open, spontaneous, at arrival to emergency department; R40.2252 Coma scale, best verbal response, oriented, at arrival to emergency department; R51 Headache; Z90.49 Acquired absence of other specified parts of digestive tract; Z68.38 Body mass index [BMI] 38.0-38.9, adult; Z79.82 Long term (current) use of aspirin; Z79.02 Long term (current) use of antithrombotics/antiplatelets; Z80.42 Family history of malignant neoplasm of prostate; Z80.1 Family history of malignant neoplasm of trachea, bronchus and lung; Z88.8 Allergy status to other drugs, medicaments and biological substances; Z82.49 Family history of ischemic heart disease and other diseases of the circulatory system
CPT/HCPCS: 36415; 70450; 70496; 70498; 70551; 71046; 80048; 80053; 80061; 82553; 83036; 83735; 83880; 84443; 84484; 85025; 85610; 85730; 86140; 87641; 93005; 93306; 99285; A9270-GY; C8929; J0780; J2405; J2997; Q9967

== ENCOUNTER 2018-04-16 10:32 | Emergency (ER) | payer OTHER ==
[2018-04-16 10:51] VITALS: BP 131/75
--- NOTE | 2018-04-16 11:25 | UC ---
Allergic Reaction HPI - HPI Summary HPI Summary: This is scribe Matias Attebnahed documenting for attending Lavon Ca MD. Pt is a 58 y/o M presents to ED s/p allergic reaction. Assoc. Sx: rash - hives, itchy. Denies: fever, chills, pain. He reports that he had a stroke ~1 week ago , Monday. He has been alleviating the Sx with plavix, aspirin and lipitor. Patient notes that he feels onset of Sx ~45 minutes s/p lipitor treatment. I, Dr. Ca, personally performed the services described in this documentation as scribed in my presence and it is both accurate and complete. - History of Current Complaint Chief Complaint: UCRash Stated Complaint: RASH Time Seen by Provider: 04/16/18 11:00 Hx Obtained From: Patient Onset/Duration: Gradual Onset - 45 mins, Still Present Pain Intensity: 0 Pain Scale Used: 0-10 Numeric Associated Signs And Symptoms: Positive: Rash - hives, Other: - POS: itching - Allergies/Home Medications Allergies/Adverse Reactions: Allergies Allergy/AdvReac Type Severity Reaction Status Date / Time atorvastatin Allergy Unknown Verified 04/11/18 07:00 Reaction Details Home Medications: Home Medications Ibuprofen 200 mg PO 04/16/18 [History] PMH/Surg Hx/FS Hx/Imm Hx Other Endocrine History: NEG: DM Other Cardiovascular History: NEG: CAD, HTN. Other History Of: Negative For: Anticoagulant Therapy - Surgical History Surgical History: Yes Surgery Procedure, Year, and Place: [id number]. heart cath - Family History Known Family History: Positive: Cardiac Disease - BLOCKED ARTERIES - BOTH PARENTS. F - [place] - 60s. M - NO [place]., Hypertension, Other - CANCER Negative: Diabetes - Social History Occupation: Employed Full-time Lives: With Family Alcohol Use: None Substance Use Type: None Smoking Status (MU): Never Smoked Tobacco - Immunization History Most Recent Influenza Vaccination: NEVER Most Recent Tetanus Shot: UNSURE Most Recent Pneumonia Vaccination: NONE Review of Systems Constitutional: Other - NEG: fever, chills, pain. Skin: Rash - hives, Other - POS: itchy. All Other Systems Reviewed And Are Negative: Yes Physical Exam - Summary Physical Exam Summary: VITAL SIGNS: Reviewed. GENERAL: Patient is a well-developed and nourished Male who is lying comfortable in the stretcher. Patient is not in any acute respiratory distress. HEAD AND FACE: Normocephalic EYES: PERRLA, EOMI x 2. EARS: Hearing grossly intact. MOUTH: Oropharynx within normal limits. NECK: Supple, trachea is midline, no adenopathy, no JVD, no carotid bruit. CHEST: Symmetric, no tenderness at palpation LUNGS: Clear to auscultation bilaterally. No wheezing or crackles. CVS: Regular rate and rhythm, S1 and S2 present, no murmurs or gallops appreciated. ABDOMEN: Soft, non-tender. Bowel sounds are normal. No abdominal abnormal pulsations. EXTREMITIES: Full ROM in all major joints, no edema, no cyanosis or clubbing. NEURO: Alert and oriented x 3. No acute neurological deficits. Speech is normal and follows Triage Information Reviewed: Yes Vital Signs: Initial Vital Signs Temp 98.4 F 04/16/18 10:46 Pulse 81 04/16/18 10:46 Resp 18 04/16/18 10:46 BP 131/75 04/16/18 10:46 Pulse Ox 99 04/16/18 10:46 Vital Signs Reviewed: Yes Allergic Reaction Course/Dx - Course Course Of Treatment: Patient is a 58-year-old male who presents to the urgent care with chief complaint of having an allergic reaction. The patient has diffuse hives, erythema and itching. He reports that the symptoms started after she started taking Plavix and Lipitor. However he reports that when he takes Plavix has no symptoms however he takes Lipitor 45 minutes later he develops increasing itching, hives and diffuse erythema. Patient denies any shortness of breath, swelling of the tongue or swelling of the lips. Denies any feeling that his throat is closing. Therefore the patient was given Benadryl, Decadron and Pepcid. I asked to call Dr. Amaya to review his medications. Patient will be discharged home with follow-up with PCP and Dr. Ash. She was given a prescription for Benadryl, prednisone, and Pepcid - Differential Dx/Diagnosis Provider Diagnoses: Allergic reaction. urticaria Discharge - Sign-Out/Discharge Documenting (check all that apply): Patient Departure All imaging exams completed and their final reports reviewed: Yes - Discharge Plan Condition: Stable Disposition: HOME Prescriptions: diPHENhydraMINE PO* [Benadryl PO 25 MG TAB*] 25 mg PO TID PRN #30 tab PRN Reason: Allergy Symptoms Famotidine TAB* [Pepcid 20 MG TAB*] 20 mg PO BID #30 tab predniSONE [Prednisone 20 MG TAB] 20 mg PO BID #12 tablet Patient Education Materials: Urticaria (ED) Referrals: Lucio Key MD [Primary Care Provider] - 3 Days Additional Instructions: Take medications as instructed and adhere to plan Take Acetaminophen or ibuprofen for pain or fever Increase your fluid intake Return to the or go to the emergency department if symptoms worsen Follow-up with primary care physician in next 2-3 days FOLLOW UP WITH YOUR PRIMARY CARE PROVIDER WITHIN ONE WEEK FOR HIGH BLOOD PRESSURE noted today - Billing Disposition and Condition Condition: STABLE Disposition: Home - Attestation Statements Document Initiated by Kena: Yes Documenting Scribe: Matias Lobato Provider For Whom Kena is Documenting (Include Credential): Lavon Ca MD. Scribe Attestation: Matias Lux scribed for Lavon Ca MD. on 04/18/18 at 0724. Scribe Documentation Reviewed: Yes Provider Attestation: The documentation as recorded by the Matias desir accurately reflects the service I personally performed and the decisions made by , Lavon Ca MD.
--- NOTE | 2018-04-17 07:40 | UC ---
- Progress Note Progress Note: no imaging studies Discharge - Sign-Out/Discharge Documenting (check all that apply): Post-Discharge Follow Up All imaging exams completed and their final reports reviewed: No Studies - Discharge Plan Condition: Stable Disposition: HOME Prescriptions: diPHENhydraMINE PO* [Benadryl PO 25 MG TAB*] 25 mg PO TID PRN #30 tab PRN Reason: Allergy Symptoms Famotidine TAB* [Pepcid 20 MG TAB*] 20 mg PO BID #30 tab predniSONE [Prednisone 20 MG TAB] 20 mg PO BID #12 tablet Patient Education Materials: Urticaria (ED) Referrals: Lucio Key MD [Primary Care Provider] - 3 Days Additional Instructions: Take medications as instructed and adhere to plan Take Acetaminophen or ibuprofen for pain or fever Increase your fluid intake Return to the UC or go to the emergency department if symptoms worsen Follow-up with primary care physician in next 2-3 days FOLLOW UP WITH YOUR PRIMARY CARE PROVIDER WITHIN ONE WEEK FOR HIGH BLOOD PRESSURE noted today - Billing Disposition and Condition Condition: STABLE Disposition: Home
== END 2018-04-16 11:45 | disposition home or self-care (01) ==
LOC: UCEAST 10:32
DX: L50.9 Urticaria, unspecified (principal); T46.6X5A Adverse effect of antihyperlipidemic and antiarteriosclerotic drugs, initial encounter; Z88.8 Allergy status to other drugs, medicaments and biological substances; Y92.9 Unspecified place or not applicable
CPT/HCPCS: 99212; G0463

== ENCOUNTER 2018-05-08 04:34 | Emergency (ER) | payer OTHER ==
[2018-05-08] MEDS ORDERED: ALPRAZolam TAB* 0.5 MG PO ONE (05:10)
--- OUTSIDE RECORDS SUMMARY | 2018-05-08 05:30 | XMS REPORT ---
:1960 External Reference #:[id number] Author Organization [employer] Address [address] [place] [address] [place] [address] Phone [phone] Care Team Providers Name Role Phone Lucio Key MD Primary Care Physician Unavailable Payers Type Date Identification Numbers Payment Provider Subscriber Commercial Policy Number: [id number] [facility] Brit A Prakash PayID: [id number] [address] [address] Problems Date Description Provider Status Onset: 05/02/2018 Carotid artery occlusion Angel Amaya MD Active Onset: 05/02/2018 Essential hypertension Angel Amaya MD Active Onset: 05/02/2018 Hyperlipidemia Angel Amaya MD Active Onset: 05/02/2018 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 Family History Date Family Member(s) Problem(s) Comments General Heart Disease Father Hypercholesterolemia : (age Father due to Prostate Cancer 80 Years) Mother Hypercholesterolemia Mother due to Lung Cancer () First Brother Cancer 40 years old Second Brother 56 Second Brother No Current Problems First Sister No Current Problems First Sister 62 Second Sister Throat Cancer Second Sister 43 Third Sister No Current Problems Third Sister 40 Third Sister Hypertension Social History Type Date Description Comments Marital Status 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 Allergies, Adverse Reactions, Alerts Date Description Reaction Status Severity Comments 05/02/2018 Lipitor active Rash Medications Medication Date Status Form Strength Qnty SIG Indications Ordering Provider Aspirin 81 Low 11/18/19 Active Chewtabs 81mg 1 by Yaya Rosado Dose 18 mouth Brand, MDimaDDima every day Pravastatin Active 20mg 1 tablet Unknown 00 po daily Amlodipine Active Tablets 2.5mg Take 1 Unknown Besylate 00 Tablet By Mouth Daily Plavix Active Tablets 75mg 1 by Unknown 00 mouth every day Vital Signs Date Vital Result Comment 05/02/2018 Height 64 inches 5'4" Weight 208.00 lb Heart Rate 76 /min BP Systolic Sitting 140 mmHg BP Diastolic Sitting 72 mmHg BMI (Body Mass Index) 35.7 kg/m2 11/17/2017 Height 64 inches 5'4" Weight 216.00 lb without shoes ( 223 lbs 3 weeks ago) Heart Rate 62 /min reg with ectopy BP Systolic Sitting 130 mmHg Rue lg cuff BP Diastolic Sitting 60 mmHg Rue lg cuff BP Systolic Standing 135 mmHg Rue lg cuff BP Diastolic Standing 64 mmHg Rue lg cuff BP Systolic Recheck 128 mmHg Rue lg cuff BP Diastolic Recheck 70 mmHg Rue lg cuff BMI (Body Mass Index) 37.1 kg/m2 Ejection Fraction 83% date 10/24/17 stress test Stress Ef Results Description No Information Procedures Date CPT Code Description Status 04/11/2018 26058 ECHO Transthorasic Realtime 2D W Doppler & Color Flow Completed Hosp 11/17/2017 10060 EKG Tracing & Interpretation Completed 10/24/2017 61544 Treadmill Interp/Report Only Completed 10/24/2017 50537 Stress Test Supervsn W/Out I/R Completed Encounters Type Date Location Provider CPT E/M Dx Office Visit 04/13/2018 [facility] [address] I63.531 7:00a G46.4 I65.23 E78.5 Office Visit 04/12/2018 7:00a [facility] Angel Amaya 16081 I63.531 G46.4 I65.23 E78.5 Office Visit 04/12/2018 2:10p [place] [address] I63.233 I10 E78.5 Office Visit 04/11/2018 7:00a [facility] Angel Amaya 31330 I63.531 G46.4 I63.233 E78.5 Office Visit 04/11/2018 2:10p [place] [address] I63.233 I10 E78.5 Office Visit 04/10/2018 7:00a [facility] Angel Amaya, 49214 I63.531 G46.4 I65.23 E78.5 Office Visit 04/10/2018 2:09p [facility], Lita Kapoor, 55603 I63.233 Hospitalists Office Visit 11/17/2017 2:45p [facility]on[facility], [address] R07.9 Laurence Rubio E78.5 Office Visit 10/24/2017 8:43a [facility], Lola Greenberg, 28187 R07.9 Hospitalists Ramiro E78.5 Office Visit 10/24/2017 2:21p [facility] [place], [address] R07.9 Laurence Rubio E78.5 I10 Office Visit 10/23/2017 8:43a [facility], Roger Vann, 16131 R07.9 Hospitalists N.P. E78.5 Plan of Care Future Appointment(s):03/01/2019 9:15 am - Angel Amaya MD at [facility] Bdjudp3805/02/2018 - Angel Amaya MDI63.531 Cereb infrc d/t unsp occls or stenos of right post cereb artComments:sp cerebellar stroke due to significant atherosclerotic disease and he is aggressively addressing risk factors. Defer to Dr Santos how best to treat his ldl but would shoot for now by bringing it down by 1/2 and ultimately below 70 if possible. I have recommended a sleep study since he snores and mayhave apnea and he is getting that and he should have a carotid doppler in a year to follow his stenosis. Please keep him on aspirin and plavix for now but please stop plavix in about 2 to 3 months. He will continue watching weight, optimizing his diet and exercising with Dr Santos's guidance.E78.5 Hyperlipidemia, [id number] Essential (primary) [id number] Occlusion and stenosis of bilateral carotid arteriesNew Xrays:VL Carotid BilateralFollow up:10 months- after carotid doppler
[2018-05-08 05:33] LABS: ABS Basophils 0.1 10^3/ul (0-0.2); ABS Eosinophils 0.1 10^3/ul (0-0.6); ABS Lymphocytes 1.3 10^3/ul (1.0-4.8); ABS Monocytes 0.5 10^3/ul (0-0.8); ABS Neutrophils 2.8 10^3/ul (1.5-7.7); ABS Nucleated RBC 0 10^3/ul; Eosinophil % 2.6 % (0-6); Hematocrit 45 % (42-52); Hemoglobin 15.3 g/dl (14.0-18.0); Lymphocyte % 26.5 % (25-47); Mean Corpuscular HGB Conc 34 g/dl (31-36); Mean Corpuscular Hemoglobin 32 pg (27-31); Mean Corpuscular Volume 93 fL (80-94); Mean Platelet Volume 8.4 um3 (7.4-10.4); Nucleated Red Blood Cells % 0.1; Platelet Count 240 10^3/ul (150-450); Red Blood Count 4.84 10^6/ul (4.00-5.40); Red Cell Distribution Width 13 % (10.5-15); White Blood Count 4.8 10^3/ul (3.5-10.8)
[2018-05-08 05:41] LABS: INR 0.92 (0.77-1.02)
--- NOTE | 2018-05-08 06:12 | ED ---
Neurological HPI - HPI Summary HPI Summary: A 58 y/o male presents to ED c/o symptoms similarly-related to his recent stroke reaching 2/10 in severity. In the ED room, the patient has a pulse of 63 BPM, O2 saturation of 97% and blood pressure of 141/73. As per triage, "Pt stated that he had a stroke about a month ago and he woke up this morning and he just wasn't feeling normal. Pt states that he felt a little cloudiness and possibly a little SOB. Pt states that right now he feels only tired". According to the patient, he had a cerebral stroke which occurred approximately a month ago (he was given TPA). He stated that his balance is good, ambulating is not an issue and he hasn't been doing any physical activity during rehab, however, around 0200 this morning, he felt stroke-like symptoms such as numbness in the head. Additionally, he felt that he was struggling as he thought he was going to lose consciousness which led to "dullness" feeling in the head (2 times). He denies any headache, vision changes or nausea, but has had slight SOB. The patient noted that he is having trouble explaining it, but it was enough to wake him up. He is currently taking Plavix and Aspirin. Patient lost weight. - History of Current Complaint Chief Complaint: EDNeurologicalDeficit Stated Complaint: HEAD NUMBNESS/SOB Time Seen by Provider: 05/08/18 04:44 Hx Obtained From: Patient Onset/Duration: Sudden Onset Timing: Intermittent Episodes Lasting: Current Severity: None Number of Seizures: 0 Pain Intensity: 2 Pain Scale Used: 0-10 Numeric Character: Unable To Describe Aggravating: Nothing Alleviating: Nothing Associated Signs and Symptoms: Positive: Loss of Consciousness - Near, Numbness , Shortness of Breath, Anxiety - Additional Pertinent History Primary Care Physician: [id number] - Allergy/Home Medications Allergies/Adverse Reactions: Allergies Allergy/AdvReac Type Severity Reaction Status Date / Time atorvastatin Allergy Unknown Verified 05/08/18 04:49 Reaction Details Home Medications: Home Medications Pravastatin Sodium 20 mg PO DAILY 05/08/18 [History Confirmed 05/08/18] PMH/Surg Hx/FS Hx/Imm Hx Endocrine/Hematology History: Denies: Hx Anticoagulant Therapy, Hx Diabetes Cardiovascular History: Reports: Hx Angina, Hx Hypercholesterolemia, Other Cardiovascular Problems/Disorders - CARDIAC CATHETERIZATION 1995 HLD Denies: Hx Hypertension - takes bp meds, Hx Pacemaker/ICD Respiratory History: Reports: Hx Sleep Apnea - NOT TESTED GI History: Reports: Hx Gastroesophageal Reflux Disease History: Denies: Hx Dialysis Sensory History: Reports: Hx Contacts or Glasses Denies: Hx Eye Injury, Hx Eye Prosthesis, Hx Glaucoma, Hx Hearing Aid Comment Only: Other Sensory Impairments - Reading glasses. Opthamlomology History: Reports: Hx Contacts or Glasses Denies: Hx Eye Injury, Hx Eye Prosthesis, Hx Glaucoma Comment Only: Other Sensory Impairments - Reading glasses. Neurological History: Denies: Hx Dementia, Hx Seizures Psychiatric History: Denies: Hx Panic Disorder - Surgical History Surgery Procedure, Year, and Place: APPY 1978. heart cath - Immunization History Date of Tetanus Vaccine: utd Date of Influenza Vaccine: fall 2016 Infectious Disease History: No Infectious Disease History: Denies: History Other Infectious Disease, Traveled Outside the [place] in Last 30 Days - Family History Known Family History: Positive: Cardiac Disease - BLOCKED ARTERIES - BOTH PARENTS. F - [place] - 60s. M - NO [place]., Hypertension, Other - CANCER Negative: Diabetes - Social History Alcohol Use: None Substance Use Type: Reports: None Smoking Status (MU): Never Smoked Tobacco Review of Systems Positive: Other - POSITIVE: Generalized sickness. Negative: Fever Negative: Blurred Vision Positive: Shortness Of Breath Negative: Nausea Neurological: Other - POSITIVE: Dullness, near LOC Positive: Numbness. Negative: Headache Positive: Anxious All Other Systems Reviewed And Are Negative: Yes Physical Exam - Summary Physical Exam Summary: VITAL SIGNS: Reviewed. GENERAL: Patient is a well-developed and nourished male who is lying comfortable in the stretcher. Patient is not in any acute respiratory distress. HEAD AND FACE: No signs of trauma. No ecchymosis, hematomas or skull depressions. No sinus tenderness. EYES: PERRLA, EOMI x 2, No injected conjunctiva, no nystagmus. EARS: Hearing grossly intact. Ear canals and tympanic membranes are within normal limits. MOUTH: Oropharynx within normal limits. NECK: Supple, trachea is midline, no adenopathy, no JVD, no carotid bruit, no c- spine tenderness, neck with full ROM. CHEST: Symmetric, no tenderness at palpation LUNGS: Clear to auscultation bilaterally. No wheezing or crackles. CVS: Regular rate and rhythm, S1 and S2 present, no murmurs or gallops appreciated. ABDOMEN: Soft, non-tender. No signs of distention. No rebound no guarding, and no masses palpated. Bowel sounds are normal. EXTREMITIES: FROM in all major joints, no edema, no cyanosis or clubbing. NEURO: Alert and oriented x 3. No acute neurological deficits. Speech is normal and follows commands. SKIN: Dry and warm PSYCH: Anxious Triage Information Reviewed: Yes Vital Signs On Initial Exam: Initial Vitals Temp Pulse Resp BP Pulse Ox 97.8 F 78 20 145/74 98 05/08/18 04:36 05/08/18 04:36 05/08/18 04:36 05/08/18 04:36 05/08/18 04:36 Vital Signs Reviewed: Yes Diagnostics - Vital Signs Vital Signs Temp Pulse Resp BP Pulse Ox 05/08/18 04:36 97.8 F 78 20 145/74 98 - Laboratory Lab Results: Lab Results 05/08/18 05/08/18 05/08/18 Range/Units 05:20 05:20 05:20 WBC 4.8 (3.5-10.8) 10^3/ul RBC 4.84 (4.00-5.40) 10^6/ul Hgb 15.3 (14.0-18.0) g/dl Hct 45 (42-52) % MCV 93 (80-94) fL MCH 32 H (27-31) pg MCHC 34 (31-36) g/dl RDW 13 (10.5-15) % Plt Count 240 (150-450) 10^3/ul MPV 8.4 (7.4-10.4) um3 Neut % (Auto) 57.7 (38-83) % Lymph % (Auto) 26.5 (25-47) % [place] % (Auto) 11.4 H (0-7) % Eos % (Auto) 2.6 (0-6) % Baso % (Auto) 1.8 (0-2) % Absolute Neuts (auto) 2.8 (1.5-7.7) 10^3/ul Absolute Lymphs (auto) 1.3 (1.0-4.8) 10^3/ul Absolute Monos (auto) 0.5 (0-0.8) 10^3/ul Absolute Eos (auto) 0.1 (0-0.6) 10^3/ul Absolute Basos (auto) 0.1 (0-0.2) 10^3/ul Absolute Nucleated RBC 0 10^3/ul Nucleated RBC % 0.1 INR (Anticoag Therapy) 0.92 (0.77-1.02) APTT 32.6 (26.0-36.3) seconds Sodium 139 (135-145) mmol/L Potassium 3.8 (3.5-5.0) mmol/L Chloride 107 (101-111) mmol/L Carbon Dioxide 25 (22-32) mmol/L Anion Gap 7 (2-11) mmol/L BUN 18 (6-24) mg/dL Creatinine 1.08 (0.67-1.17) mg/dL Est GFR ( Amer) 84.7 (>60) Est GFR (Non-Af Amer) 70.0 (>60) BUN/Creatinine Ratio 16.7 (8-20) Glucose 88 (70-100) mg/dL Calcium 9.1 (8.6-10.3) mg/dL Magnesium 2.0 (1.9-2.7) mg/dL Total Bilirubin 0.40 (0.2-1.0) mg/dL AST 22 (13-39) U/L ALT 37 (7-52) U/L Alkaline Phosphatase 45 (34-104) U/L Total Protein 6.9 (6.4-8.9) g/dL Albumin 4.0 (3.2-5.2) g/dL Globulin 2.9 (2-4) g/dL Albumin/Globulin Ratio 1.4 (1-3) Result Diagrams: 05/08/18 05:20 05/08/18 05:20 Lab Statement: Any lab studies that have been ordered have been reviewed, and results considered in the medical decision making process. - EKG 0529 Cardiac Rate: NL - 63 BPM EKG Rhythm: Sinus Rhythm EKG Interpretation: Normal axis, normal interval, ischemic changes Re-Evaluation - Re-Evaluation First Eval Re-Evaluation Time: 06:15 Comment: Patient is asymptomatic in ED. Course/Dx - Course Course Of Treatment: A 58 y/o male presents to ED c/o symptoms similarly- related to his recent stroke reaching 2/10 in severity. In the ED room, the patient has a pulse of 63 BPM, O2 saturation of 97% and blood pressure of 141/ 73. An EKG revealed NSR of 63 BPM, normal axis, normal interval and no ischemic changes. In the ED course, the patient recieved Xanax Patient will be discharged with a diagnosis of history of CVA in adulthood. Patient is to follow up with neurologist, Dr. Amaya, within 1-2 days. Patient is agreeable with this plan. - Diagnoses Provider Diagnoses: History of CVA in adulthood Discharge - Sign-Out/Discharge Documenting (check all that apply): Patient Departure - DISCHARGE - Discharge Plan Condition: Stable Disposition: HOME Patient Education Materials: Dizziness (ED) Referrals: Lucio Key MD [Primary Care Provider] - Angel Amaya MD [Medical Doctor] - 2 Days Additional Instructions: FOLLOW UP WITH NEUROLOGY WITHIN 1-2 DAYS. RETURN TO ED FOR ANY NEW OR WORSENING SYMPTOMS. - Attestation Statements Document Initiated by Scribe: Yes Documenting Scribe: Edward Muller Provider For Whom Ivye is Documenting (Include Credential): Brenda Torres MD Scribe Attestation: Edward Lux, scribed for Brenda Torres MD on 05/08/18 at 0617.
[2018-05-08 06:35] VITALS: BP 129/78
== END 2018-05-08 06:36 | disposition home or self-care (01) ==
LOC: ED 04:34
DX: R06.02 Shortness of breath (principal); Z86.73 Personal history of transient ischemic attack (TIA), and cerebral infarction without residual deficits; R20.0 Anesthesia of skin; F41.9 Anxiety disorder, unspecified
CPT/HCPCS: 36415; 80053; 83735; 85025; 85610; 85730; 93005; 99283; A9270-GY

== ENCOUNTER 2021-09-14 19:00 | Inpatient (IN) ==
[2021-09-14] MEDS ORDERED: Heparin - STEMI 5,000 UNITS/ML 1 ml VIAL IV ONE (19:08)
[2021-09-14] MEDS ORDERED: Morphine 2 MG/ML SYRINGE IV ONE (19:15)
[2021-09-14 19:19] LABS: ABS Basophils 0.1 10^3/ul (0-0.2); ABS Eosinophils 0.1 10^3/ul (0-0.6); ABS Lymphocytes 2.8 10^3/ul (1.0-4.8); ABS Monocytes 0.8 10^3/ul (0-0.8); ABS Neutrophils 4.9 10^3/ul (1.5-7.7); Eosinophil % 1.4 %; Hematocrit 47 % (42-52); Lymphocyte % 32.1 %; Mean Corpuscular HGB Conc 34 g/dL (31-36); Mean Corpuscular Hemoglobin 32 pg (27-31); Mean Corpuscular Volume 93 fL (80-94); Mean Platelet Volume 7.3 fL (7.4-10.4); Nucleated Red Blood Cells % 0.1; Platelet Count 335 10^3/uL (150-450); Red Blood Count 5.01 10^6 /uL (4.18-5.48); Red Cell Distribution Width 13 % (10-15); White Blood Count 8.7 10^3/uL (3.5-10.8)
[2021-09-14] MEDS ORDERED: Midazolam 5 mg/5 ml VIAL 1 mg/ml 5 ml VIAL (5 mg) ONE (19:32)
[2021-09-14] MEDS ORDERED: Heparin 2 UNITS/ML 1000 mls 2,000 ML IV ONE (19:32)
[2021-09-14] MEDS ORDERED: fentaNYL 100 mcg/2 ml 50 MCG/ML VIAL ONE (19:32)
[2021-09-14] MEDS ORDERED: Heparin 1,000 UNIT/ML 10 ml (10,000 UNITS) CATHLAB/DIALYSIS ONE (19:32)
[2021-09-14] MEDS ORDERED: VERAPAMIL 2.5 MG/ML 2 ML VIAL ** 5 mg/2 ml ONE (19:32)
[2021-09-14] MEDS ORDERED: Lidocaine 1% VIAL 10 MG/ML VIAL ONE (19:33)
[2021-09-14] MEDS ORDERED: nitroGLYCERIN DRIP 25,000 MCG/250 ML BTL ONE (19:33)
[2021-09-14] MEDS ORDERED: Iohexol 350 (CONTRAST) 200 ML MDV IV ONE ×2 (19:33→19:46)
[2021-09-14 19:34] LABS: Activated Partial Thrombo Time 28.8 seconds (26.0-38.0); INR 1.06 (0.86-1.15)
[2021-09-14 19:40] LABS: Troponin I 0.01 ng/mL (<0.03)
[2021-09-14 19:41] LABS: Albumin 4.5 g/dL (3.2-5.2); Albumin/Globulin Ratio 1.4 (1-3); Calcium 9.4 mg/dL (8.6-10.3); Globulin 3.2 g/dL (2-4); Magnesium 1.9 mg/dL (1.9-2.7); Potassium 3.6 mmol/L (3.5-5.0); Total Bilirubin 0.5 mg/dL (0.2-1.0); Total Protein 7.7 g/dL (6.4-8.9); eGFR CKD-EPI 58.8 (>60)
[2021-09-14] MEDS ORDERED: Bivalirudin 250 MG VIAL ONE (20:03)
[2021-09-14] MEDS ORDERED: Furosemide 40 mg/4 ml IV VIAL ONE (20:38)
[2021-09-14] MEDS ORDERED: NS 0.9% 1000 ml BAG 1,000 ML IV SCH (21:00)
[2021-09-14 22:13] LABS: Troponin I 4.94 ng/mL (<0.03)
[2021-09-14] MEDS ORDERED: Potassium Chlor 20 meq TAB.ER PO ONE (23:41)
[2021-09-15] MEDS ORDERED: Magnesium Sulfate IV 1GM/100ML 1 GM/100 ML BAG IV ONE (01:02)
[2021-09-15 03:08] LABS: ABS Basophils 0.1 10^3/ul (0-0.2); ABS Lymphocytes 1.5 10^3/ul (1.0-4.8); ABS Monocytes 0.8 10^3/ul (0-0.8); ABS Neutrophils 6.7 10^3/ul (1.5-7.7); Eosinophil % 0.2 %; Hematocrit 43 % (42-52); Hemoglobin 14.6 g/dL (14.0-18.0); Lymphocyte % 16.6 %; Mean Corpuscular HGB Conc 34 g/dL (31-36); Mean Corpuscular Hemoglobin 32 pg (27-31); Mean Corpuscular Volume 94 fL (80-94); Mean Platelet Volume 7.4 fL (7.4-10.4); Platelet Count 290 10^3/uL (150-450); Red Blood Count 4.56 10^6 /uL (4.18-5.48); Red Cell Distribution Width 13 % (10-15); White Blood Count 9.1 10^3/uL (3.5-10.8)
[2021-09-15 03:24] LABS: ALT 44 U/L (7-52); AST 113 U/L (13-39); Albumin 3.9 g/dL (3.2-5.2); Albumin/Globulin Ratio 1.3 (1-3); Alkaline Phosphatase 49 U/L (35-149); Anion Gap 8 mmol/L (2-11); Blood Urea Nitrogen 14 mg/dL (6-24); CO2 Carbon Dioxide 28 mmol/L (22-32); Calcium 8.5 mg/dL (8.6-10.3); Chloride 102 mmol/L (101-111); Cholesterol 288 mg/dL; Globulin 2.9 g/dL (2-4); Glucose 106 mg/dL (70-100); HDL Cholesterol 46.3 mg/dL; LDL Cholesterol 216 mg/dL; Potassium 3.7 mmol/L (3.5-5.0); Sodium 138 mmol/L (135-145); Total Protein 6.8 g/dL (6.4-8.9); Triglycerides 127 mg/dL
[2021-09-15] MEDS ORDERED: Potassium Chlor 20 meq TAB.ER PO ONE (03:26)
[2021-09-15 03:45] LABS: Magnesium 1.9 mg/dL (1.9-2.7); Phosphorus 3.9 mg/dL (2.5-5.0)
[2021-09-15 03:49] LABS: Troponin I 32.17 ng/mL (<0.03)
[2021-09-15] MEDS: Al Hydrox/Mg Hydrox/Simet LIQ 30 ML UDC PO PRN ×2 (03:53→07:45)
[2021-09-15] MEDS ORDERED: Perflutren Lipid Microsphere 3 ML VIAL ONE (08:30)
[2021-09-15] MEDS ORDERED: CMCS: Pravastatin 20 mg TAB (NF) PO SCH (09:00)
[2021-09-15 10:02] LABS: Troponin I 32.51 ng/mL (<0.03)
[2021-09-15 10:03] LABS: Troponin I 26.59 ng/mL (<0.03)
[2021-09-15] MEDS ORDERED: diPHENhydraMINE IV 50 MG/ML 1 ml VIAL (BENADRYL) IV PRN (18:49)
[2021-09-15] MEDS ORDERED: diPHENhydraMINE IV 50 MG/ML 1 ml VIAL (BENADRYL) ONE (18:51)
[2021-09-16 05:08] VITALS: BP 97/59
[2021-09-16 06:23] LABS: Hematocrit 44 % (42-52); Hemoglobin 14.6 g/dL (14.0-18.0); Mean Corpuscular HGB Conc 33 g/dL (31-36); Mean Corpuscular Hemoglobin 32 pg (27-31); Mean Corpuscular Volume 95 fL (80-94); Mean Platelet Volume 7.3 fL (7.4-10.4); Platelet Count 275 10^3/uL (150-450); Red Blood Count 4.61 10^6 /uL (4.18-5.48); Red Cell Distribution Width 14 % (10-15); White Blood Count 7.8 10^3/uL (3.5-10.8)
[2021-09-16 06:43] LABS: Calcium 8.7 mg/dL (8.6-10.3); Magnesium 2.1 mg/dL (1.9-2.7); Phosphorus 2.7 mg/dL (2.5-5.0); Potassium 4.1 mmol/L (3.5-5.0); eGFR CKD-EPI 59.9 (>60)
[2021-09-16] MEDS ORDERED: CMCS:Pravastatin 20 mg TAB (NF) PO SCH (09:00)
== END 2021-09-16 12:25 | disposition home or self-care (01) | DRG 174 ==
LOC: ED 19:00 → CHICATH 19:29 → ICU 20:53

== ENCOUNTER 2021-10-28 08:29 | Observation (INO) ==
[2021-10-28] MEDS ORDERED: fentaNYL 100 mcg/2 ml 50 MCG/ML VIAL ONE (11:24)
[2021-10-28] MEDS ORDERED: Midazolam 5 mg/5 ml VIAL 1 mg/ml 5 ml VIAL (5 mg) ONE (11:24)
[2021-10-28] MEDS ORDERED: VERAPAMIL 2.5 MG/ML 2 ML VIAL ** 5 mg/2 ml ONE (11:24)
[2021-10-28] MEDS ORDERED: nitroGLYCERIN DRIP 25,000 MCG/250 ML BTL ONE (11:25)
[2021-10-28] MEDS ORDERED: Heparin 2 UNITS/ML 1000 mls 2,000 ML IV ONE (11:25)
[2021-10-28] MEDS ORDERED: Lidocaine 1% VIAL 10 MG/ML VIAL ONE (11:25)
[2021-10-28] MEDS ORDERED: Heparin 1,000 UNIT/ML 10 ml (10,000 UNITS) CATHLAB/DIALYSIS ONE (11:25)
[2021-10-28] MEDS ORDERED: Iohexol 350 (CONTRAST) 200 ML MDV IV ONE ×2 (11:26→12:26)
[2021-10-28] MEDS ORDERED: diPHENhydraMINE IV 50 MG/ML 1 ml VIAL (BENADRYL) ONE (11:44)
[2021-10-28] MEDS ORDERED: Bivalirudin 250 MG VIAL ONE (12:18)
[2021-10-28] MEDS ORDERED: Lactated Ringers 1000 ml BAG 1,000 ML IV ONE (14:21)
[2021-10-28 20:51] LABS: Troponin I 0.07 ng/mL (<0.03)
[2021-10-29 01:08] LABS: Troponin I 0.21 ng/mL (<0.03)
[2021-10-29 05:14] LABS: ABS Eosinophils 0.1 10^3/ul (0-0.6); ABS Lymphocytes 1.6 10^3/ul (1.0-4.8); ABS Monocytes 0.6 10^3/ul (0-0.8); ABS Neutrophils 3.3 10^3/ul (1.5-7.7); Eosinophil % 2.1 %; Hematocrit 40 % (42-52); Hemoglobin 13.5 g/dL (14.0-18.0); Lymphocyte % 28.3 %; Mean Corpuscular HGB Conc 33 g/dL (31-36); Mean Corpuscular Hemoglobin 32 pg (27-31); Mean Corpuscular Volume 96 fL (80-94); Mean Platelet Volume 8.4 fL (7.4-10.4); Platelet Count 226 10^3/uL (150-450); Red Blood Count 4.21 10^6 /uL (4.18-5.48); Red Cell Distribution Width 13 % (10-15); White Blood Count 5.5 10^3/uL (3.5-10.8)
[2021-10-29 05:56] LABS: Blood Urea Nitrogen 13 mg/dL (6-24); CO2 Carbon Dioxide 28 mmol/L (22-32); Calcium 8.7 mg/dL (8.6-10.3); Chloride 107 mmol/L (101-111); Glucose 85 mg/dL (70-100); Sodium 138 mmol/L (135-145); eGFR CKD-EPI 76.7 (>60)
[2021-10-29 05:57] LABS: Anion Gap 3 mmol/L (2-11)
[2021-10-29 08:28] VITALS: BP 151/87
== END 2021-10-29 09:30 | disposition home or self-care (01) ==
LOC: CHICATH 08:29 → ICU 13:26 → INTOOBSV 13:26

== ENCOUNTER 2024-03-27 10:23 | Observation (INO) ==
[2024-03-27 11:02] LABS: ABS Basophils 0.1 10^3/uL (0.0-0.1); ABS Eosinophils 0.1 10^3/uL (0.0-0.5); ABS Lymphocytes 1.2 10^3/uL (1.0-4.8); ABS Monocytes 0.6 10^3/uL (0.0-1.1); ABS Neutrophils 4.3 10^3/uL (1.5-7.6); ABS Nucleated RBC 0.01 10^3/ul; Eosinophil % 0.9 %; Hematocrit 46.6 % (38-53); Hemoglobin 15.7 g/dL (13.2-16.3); Lymphocyte % 19.9 %; Mean Corpuscular Hemoglobin 31.6 pg (27-33); Mean Corpuscular Hgb Conc 33.6 g/dL (31-36); Mean Platelet Volume 7.9 fL (7.5-11.2); Nucleated Red Blood Cells % 0.1 %/100WBC (0.0-0.8); Platelet Count 290 10^3/uL (150-450); Red Blood Count 4.96 10^6/uL (4.06-5.63); Red Cell Distribution Width 13.8 % (12-17); White Blood Count 6.1 10^3/uL (3.6-10.2)
[2024-03-27 11:12] LABS: INR 1.1 (0.83-1.13)
[2024-03-27 11:59] LABS: Albumin 4.1 g/dL (3.2-5.2); Albumin/Globulin Ratio 1.6 (1-3); Calcium 9.1 mg/dL (8.6-10.3); Creatinine, Serum 1.31 mg/dL (0.67-1.17); Globulin 2.6 g/dL (2-4); Potassium 4.2 mmol/L (3.5-5.0); Total Bilirubin 0.7 mg/dL (0.2-1.0); Total Protein 6.7 g/dL (6.4-8.9); eGFR CKD-EPI 60.4 (>60)
[2024-03-27] MEDS: Iohexol 350 (CONTRAST) 500 ML MDV IV ONE (12:42)
[2024-03-27 13:03] LABS: High Sensitivity Troponin 1 Hr 3 pg/mL (<20)
[2024-03-27] MEDS: Famotidine IV 10 MG/ML 2 ml VIAL (20 mg) IV SLOW PU ONE (14:54)
[2024-03-27] MEDS: Al Hydrox/Mg Hydrox/Simet LIQ 30 ML UDC PO ONE (14:54)
[2024-03-27] MEDS: Ticagrelor 60 mg TAB (NF) PO SCH (20:43)
[2024-03-27] MEDS: Pravastatin 20 mg TAB (NF) PO SCH (20:43)
[2024-03-28] MEDS: Aspirin EC 81 mg TAB.EC (enteric coated) PO SCH (07:38)
[2024-03-28] MEDS ORDERED: Regadenoson 0.4 MG/5 ML SYRINGE ONE (08:58)
[2024-03-28 13:49] VITALS: BP 110/64
== END 2024-03-28 14:05 | disposition home or self-care (01) ==
LOC: ED 10:23 → EDHOLD 10:23 → MEDTELE 17:39
PROVIDERS: ADMIT Internal Medicine; ATTEND Internal Medicine